=== PATIENT | female | born 1970 | race Caucasian/White ===

== ENCOUNTER 2020-03-29 12:52 | Outpatient (REF) | payer OTHER, SELFPAY | END 2020-03-29 12:53 | disposition home or self-care (01) | LOC: HO.LAB 12:52 | PROVIDERS: PCP Internal Medicine; Visit Provider Internal Medicine | DX: Z12.31 Encounter for screening mammogram for malignant neoplasm of breast (principal) | CPT/HCPCS: 87635 ==

== ENCOUNTER 2020-07-10 08:47 | Outpatient (REF) | payer SELFPAY ==
[2020-07-10 10:27] LABS: Cholesterol 210 mg/dL
== END 2020-07-10 08:48 | disposition home or self-care (01) ==
LOC: HO.LNC 08:47
PROVIDERS: Visit Provider Pathology Anatomic Pathology & Clinical Pathology
DX: Z13.89 Encounter for screening for other disorder (principal)
CPT/HCPCS: 36415; 82465

== ENCOUNTER 2020-08-04 08:33 | Outpatient (REF) | payer OTHER, SELFPAY ==
[2020-08-04 09:14] LABS: MANUAL DIFF FLAG NO
[2020-08-04 09:19] LABS: Basophils Absolute Auto 0.1 X10*3/uL (0.0-0.2); Eosinophils Absolute Auto 0.4 X10*3/uL (0.0-0.4); Hematocrit 39.5 % (37-47); Hemoglobin 12.7 g/dl (12.0-16.0); Imm Gran Abs Auto 0.01 X10*3/uL (0.00-0.03); Imm Gran Pct Auto 0.2 % (0.0-0.4); Lymphocytes Absolute Auto 1.9 X10*3/uL (1.2-4.9); Lymphocytes Percent Auto 30.4 % (20-40); Mean Corpuscular HGB Conc 32.2 g/dl (31.0-35.0); Mean Corpuscular Hemoglobin 27.9 pg (27.0-33.0); Mean Corpuscular Volume 86.8 fL (80-98); Mean Platelet Volume 9.6 fL (9.4-12.3); Monocytes Absolute Auto 0.6 X10*3/uL (0.1-1.2); Monocytes Percent Auto 9.9 % (2-11); Neutrophils Absolute Auto 3.2 X10*3/uL (2.0-8.3); Neutrophils Percent Auto 51.5 % (45-73); Platelet Count 350 X10*3/uL (160-400); Red Blood Count 4.55 X10*6/uL (4.20-5.50); Red Cell Distribution Width 12.9 % (11.0-16.0); White Blood Count 6.3 X10*3/uL (4.8-10.8)
[2020-08-04 09:50] LABS: Alanine Aminotransferase < 6 U/L (0-31); Alkaline Phosphatase 67 U/L (39-117); Anion Gap 11 (12-20); Aspartate Amino Transferase 12 U/L (5-31); Bilirubin Total 0.6 mg/dL (0.0-1.0); Blood Urea Nitrogen 14 mg/dL (9-16); Calcium 8.5 mg/dL (8.4-10.2); Carbon Dioxide 26 mmol/L (22-29); Chloride 106 mmol/L (96-108); Cholesterol 196 mg/dL; Estimated Glomerular Filt Rate > 60; Glucose Random 86 mg/dL (60-115); HDL Cholesterol 39 mg/dL; LDL Cholesterol Calculated 121 mg/dl; Potassium 4.3 mmol/L (3.3-5.1); Sodium 139 mmol/L (135-145); Total Protein 6.9 g/dL (6.5-8.0); Triglycerides 180 mg/dL
[2020-08-04 10:16] LABS: Thyroid Stimulating Hormone 4.42 uIU/mL (0.32-4.0)
[2020-08-05 08:30] LABS: HIV AB/AG Nonreactive (Nonreactive); HIV Num 1 0.06 S/CO (0.00-0.99)
[2020-08-05 19:48] LABS: C. trachomatis RNA TMA NOT DETECTED (NOT DETECTED); N. gonorrhoeae RNA TMA NOT DETECTED (NOT DETECTED)
[2020-08-07 18:16] LABS: Treponema pallidum Ab FTA ABS Nonreactive (Nonreactive)
== END 2020-08-04 08:34 | disposition home or self-care (01) ==
LOC: HO.LAB 08:33
PROVIDERS: PCP Internal Medicine; Visit Provider Internal Medicine
DX: E66.9 Obesity, unspecified (principal); E78.2 Mixed hyperlipidemia; L30.8 Other specified dermatitis; Z72.0 Tobacco use; Z11.3 Encounter for screening for infections with a predominantly sexual mode of transmission
CPT/HCPCS: 36415; 80053; 80061; 84443; 85025; 86780; 87389; 87491; 87591

== ENCOUNTER 2020-08-27 15:42 | Outpatient (REF) | payer OTHER, SELFPAY ==
--- NOTE | ~2020-08-27 | MM_ITS ---
EXAMINATION: MM SCREENING DIGITAL BREAST TOMOSYNTHESIS, BILATERAL CLINICAL INFORMATION: Screening. Asymptomatic. The lifetime risk of breast cancer based on the Tyrer-Cuzick Model is 6.5%. COMPARISON: Mammography: 08/22/2019 and studies dating back to 04/29/2009 TECHNIQUE: Digital breast tomosynthesis is performed in both the craniocaudal and mediolateral oblique views along with computer-aided detection (CAD). Synthesized 2-D images are generated from the tomosynthesis. FINDINGS: There are scattered areas of fibroglandular density (ACR BI-RADS breast composition Category b). No abnormal dominant mass is seen within either the right or left breast. Within the left breast in the inferior lateral aspect approximately 6 cm from the nipple, there is a tight grouping of increasing calcifications for which spot magnification views in craniocaudal and 90 degree mediolateral views is recommended. MM/MM tomosynthesis screening BI IMPRESSION: Developing left breast calcifications. ASSESSMENT: BI-RADS 0: Incomplete - Need Additional Imaging Evaluation . RECOMMENDATION: 1. Additional views of the left breast. 2. Targeted ultrasound if warranted after review of the additional views. 3. Radiology department staff will contact the patient for additional imaging.
== END 2020-08-27 15:43 | disposition home or self-care (01) ==
LOC: HO.MAMMO 15:42
PROVIDERS: PCP Internal Medicine; Visit Provider Internal Medicine
DX: Z12.31 Encounter for screening mammogram for malignant neoplasm of breast (principal)
CPT/HCPCS: 77063; 77067

== ENCOUNTER 2020-09-14 14:21 | Outpatient (REF) | payer OTHER, SELFPAY ==
--- NOTE | ~2020-09-14 | MM_ITS ---
EXAMINATION: MM DIAGNOSTIC DIGITAL MAMMOGRAPHY, LEFT CLINICAL INFORMATION: Recall from screening for calcifications left breast mid outer quadrant. COMPARISON: Mammography: 08/27/2020 and prior exams dating back to 07/05/2010 TECHNIQUE: Digital mammography is performed in the following views: Magnification left CC, magnification left ML. FINDINGS: There are scattered areas of fibroglandular density (ACR BI-RADS breast composition Category b). The additional views demonstrate a few punctate calcifications mid 3:00 position very tightly grouped within an area of only 3 mm. No ductal or segmental distribution. In retrospect, there are likely a few punctate calcifications in this area on remote prior imaging. Results are discussed with the patient at time of visit. Calcifications are likely benign and will be reassessed again in 6 months to include magnification views. MM/MM added views LT IMPRESSION: Probable benign punctate calcifications tightly grouped mid 3:00 position. ASSESSMENT: BI-RADS 3: Probably Benign RECOMMENDATION: Diagnostic left mammography to include magnification views in 6 months. This patient's information was entered into a reminder system with a target due date for their next mammogram.
== END 2020-09-14 14:22 | disposition home or self-care (01) ==
LOC: HO.MAMMO 14:21
PROVIDERS: PCP Internal Medicine; Visit Provider Internal Medicine
DX: R92.1 Mammographic calcification found on diagnostic imaging of breast (principal)
CPT/HCPCS: 77065

== ENCOUNTER 2021-03-30 13:57 | Outpatient (REF) | payer OTHER, SELFPAY ==
--- NOTE | ~2021-03-30 | MM_ITS ---
EXAMINATION: MM DIAGNOSTIC DIGITAL BREAST TOMOSYNTHESIS, LEFT CLINICAL INFORMATION: Short interval six-month follow-up probable benign tightly grouped punctate calcifications mid 3:00 left breast. TC score 7%. COMPARISON: Mammography: 09/14/2020, 08/27/2020 (BI-RADS 0), prior exams dating back to 07/05/2010. TECHNIQUE: Digital breast tomosynthesis is performed in both the craniocaudal and mediolateral oblique views along with computer-aided detection (CAD). Synthesized 2D images are generated from the tomosynthesis. Additional magnification left CC and magnification left ML views are obtained. FINDINGS: There are scattered areas of fibroglandular density (ACR BI-RADS breast composition Category b). There is no developing density or interval mass or architectural abnormality. Some punctate round calcifications are grouped at the mid 3:00 position. No significant change from prior diagnostic study. Calcifications will be reassessed again at next bilateral annual mammography, due in 6 months. Results are provided to the patient at time of visit by the technologist. MM/MM tomosynthesis diagnostic LT IMPRESSION: No significant changes from prior diagnostic exam. ASSESSMENT: BI-RADS 3: Probably Benign RECOMMENDATION: Diagnostic mammography at time of annual bilateral mammography, due in 6 months. This patient's information was entered into a reminder system with a target due date for their next mammogram.
== END 2021-03-30 13:58 | disposition home or self-care (01) ==
LOC: HO.MAMMO 13:57
PROVIDERS: Visit Provider Internal Medicine
DX: R92.1 Mammographic calcification found on diagnostic imaging of breast (principal)
CPT/HCPCS: 77061; 77065

== ENCOUNTER 2021-04-27 10:45 | Emergency (ER) | payer OTHER, SELFPAY ==
--- NOTE | ~2021-04-27 | CT_ITS ---
EXAMINATION: CT ABDOMEN AND PELVIS WITH CONTRAST CLINICAL INFORMATION: Epigastric pain COMPARISON: CT of the abdomen and pelvis 04/26/2016 TECHNIQUE: Multidetector volumetric images were obtained from the superior aspect of the liver through the pubic symphysis following administration 85 mL of Omnipaque 350 intravenous contrast. Sagittal and coronal reformatted images were obtained on the technologist's workstation. Oral contrast: No This CT examination was performed using dose optimization techniques as appropriate, variously including the following: *Automated exposure control *Adjustment of mA and/or kV according to patient size (this includes techniques or standardized protocols for targeted exams where dose is matched to indication/reason for exam; i.e. extremities or head) *Use of iterative reconstruction technique DLP: 819 mGy-cm FINDINGS: LUNG BASES: The visualized lung bases are unremarkable. LIVER, GALLBLADDER, AND BILIARY TREE: The liver is normal in size, shape, and attenuation. No focal hepatic lesion or biliary ductal dilatation is present. The gallbladder is surgically absent. PANCREAS: There is stranding of the peripancreatic mesentery. No peripancreatic fluid collection. The pancreatic duct is not dilated. There is uniform enhancement of the pancreatic parenchyma. SPLEEN: Unremarkable. ADRENAL GLANDS: Unremarkable. KIDNEYS AND URETERS: Again demonstrated are dilated bilateral extrarenal pelvises ulna not significantly changed since the prior study. There is symmetric enhancement of both kidneys. BLADDER: Unremarkable. GASTROINTESTINAL TRACT: The stomach and small bowel are not dilated. No evidence of bowel obstruction. Scattered diverticula of the descending and sigmoid colon without evidence of diverticulitis. Normal appendix. ABDOMINAL WALL: No significant hernia is appreciated. LYMPH NODES: There are enlarged periportal and peripancreatic lymph nodes, measuring up to 1.4 cm in short axis. VASCULAR: Normal caliber of the abdominal aorta. Scattered atherosclerotic calcifications. PELVIC VISCERA: There are prominent vessels around the uterus. There is a low-density lesion in the left aspect of the uterus measuring approximately 0.6 cm, that may represent a small cyst. The bilateral ovaries are normal.. OSSEOUS STRUCTURES: No acute or suspicious osseous abnormality. Grade 1 anterolisthesis of L3 on L4, unchanged prior study. CT/CT abdomen pelvis w con IMPRESSION: Peripancreatic inflammatory stranding, suggestive of pancreatitis. Recommend clinical and laboratory correlation. No peripancreatic fluid collection. No evidence for pancreatic necrosis. Findings are similar to prior studies. Mildly enlarged periportal and peripancreatic lymph nodes, likely reactive. Other chronic findings as above.
[2021-04-27 11:23] VITALS: BP 140/95; PULSE 89; RESP 18; TEMP 37.4; O2SAT 96; BMI 59.2
[2021-04-27 12:36] LABS: MANUAL DIFF FLAG NO
[2021-04-27 12:38] LABS: Basophils Percent Auto 0.4 % (0-2); Eosinophils Absolute Auto 0.1 X10*3/uL (0.0-0.4); Eosinophils Percent Auto 1.1 % (0-4); Hematocrit 44.5 % (37.0-47.0); Hemoglobin 14.4 g/dl (12.0-16.0); Imm Gran Abs Auto 0.04 X10*3/uL (0.00-0.03); Imm Gran Pct Auto 0.5 % (0.0-0.4); Lymphocytes Absolute Auto 1.3 X10*3/uL (1.2-4.9); Lymphocytes Percent Auto 17.4 % (20-40); Mean Corpuscular HGB Conc 32.4 g/dl (31.0-35.0); Mean Corpuscular Hemoglobin 27.9 pg (27.0-33.0); Mean Corpuscular Volume 86.2 fL (80.0-98.0); Mean Platelet Volume 9.2 fL (9.4-12.3); Monocytes Absolute Auto 0.8 X10*3/uL (0.1-1.2); Monocytes Percent Auto 11.1 % (2-11); Neutrophils Absolute Auto 5.2 x10*3/uL (2.0-8.3); Neutrophils Percent Auto 69.5 % (45-73); Platelet Count 345 X10*3/uL (160-400); Red Blood Count 5.16 X10*6/uL (4.20-5.50); Red Cell Distribution Width 14.1 % (11.0-16.0); White Blood Count 7.4 X10*3/uL (4.8-10.8)
[2021-04-27 12:56] LABS: Alanine Aminotransferase 10 U/L (0-31); Albumin Level 4.4 g/dL (3.5-5.0); Alkaline Phosphatase 96 U/L (39-117); Anion Gap 12 (12-20); Aspartate Amino Transferase 14 U/L (5-31); Bilirubin Direct 0.2 mg/dL (0.0-0.5); Bilirubin Total 0.6 mg/dL (0.0-1.0); Blood Urea Nitrogen 13 mg/dL (9-16); Calcium 9.8 mg/dL (8.4-10.2); Carbon Dioxide 28 mmol/L (22-29); Chloride 102 mmol/L (96-108); Creatinine Clr Calc Pharmacy 64.4; Estimated Glomerular Filt Rate > 60; Glucose Random 97 mg/dL (60-115); Lipase 20 U/L (8-78); Potassium 4.3 mmol/L (3.3-5.1); Sodium 138 mmol/L (135-145)
[2021-04-27 12:56] LABS: Appearance Urine HAZY; Color Urine YELLOW; Glucose Urine UA NEG (NEG); Leukocyte Esterase Urine NEG (NEG); Nitrite Urine NEG (NEG); Specific Gravity - Urine 1.015 (1.005-1.025); Urine Blood NEG (NEG); Urine Ketones NEG (NEG); Urine Protein NEG (NEG-TRACE)
[2021-04-27 16:51] VITALS: BP 140/91; PULSE 90; RESP 18; O2SAT 96
--- NOTE | 2021-04-27 16:51 | ED_ITS ---
HPI - Abdominal Pain General Chief Complaint: Abdominal Pain Stated Complaint: fever, hbp, rapid heart beat, abd pain Time Seen by Provider: 04/27/21 16:49 Source: patient Mode of arrival: ambulatory Limitations: no limitations History of Present Illness MD elicited complaint: abdominal pain Pertinent past history: none Onset (ago): day(s) (1) Pain Consistency: constant Location: epigastric Severity: severe Quality: stabbing Radiation: none Migration to: no migration Exacerbating factors: eating Relieving factors: nothing Context: other (started after eating ribs) Associated symptoms: nausea, fever and chills Treatments prior to arrival: NSAIDs Related Data Previous Rx's Medication Instructions Recorded morphine 15 mg immediate release 15 mg PO Q6H PRN 3 Days #15 tab 04/27/21 tablet omeprazole 20 mg capsule,delayed 20 mg PO DAILY 14 Days #14 cap 04/27/21 release ondansetron 4 mg disintegrating 4 mg PO Q8H PRN #20 tab 04/27/21 tablet Allergies Allergy/AdvReac Type Severity Reaction Status Date / Time No Known Allergies Allergy Verified 04/27/21 11:23 [No Known Allergies*] Review of Systems Review of Systems Constitutional : No Weight loss, pos Fever, pos Chills ENT/Mouth : No sore throat, No Rhinorrhea Eyes: No Swelling, No Redness Cardiovascular : No Chest Pain, No SOB, NoEdema Respiratory : No Cough, No Sputum, No Wheezing Gastrointestinal : Positive Nausea, no Vomiting, no Diarrhea, positive abdominal Pain, No Hematochezia, No Melena Genitourinary : No Dysuria, No Urinary Frequency, No Hematuria, No Urgency Musculoskeletal : No joint pain, No Myalgias, No Joint Swelling Skin : No Skin Lesions, No rash Neuro : No Weakness, No Numbness, No Dizziness, No Headache Psych : No Anxiety/Panic, No Depression Heme/Lymph: No Bruising, No Lymphadenopathy Endocrine : No Polyuria, No Polydipsia All other systems reviewed and are negative. Physical Exam Vital Signs: Vital Signs: Last Vital Signs Temp 98.3 F 04/27/21 17:53 Pulse 80 04/27/21 17:53 Resp 16 04/27/21 17:53 BP 153/97 H 04/27/21 17:53 Pulse Ox 95 04/27/21 17:53 Body Mass Index 59.2 Appearance: Alert. Oriented X3. Anxious in pain mild acute distress Eyes: Pupils equal, round and reactive to light. ENT: Pharynx mild dry MM Neck: Normal inspection. Neck supple. CVS: Normal heart rate and rhythm. Pulses normal. Respiratory: No respiratory distress. Abdomen: Soft and moderate epigastric ttp no rebound no distention Skin: Skin warm and dry. Normal skin color. Normal skin turgor. Extremities: No lower extremity edema. Neuro: Oriented X 3. No motor deficit. No sensory deficit. Course Course Course Narrative: patient can no longer wait in ED instructed her to return at any time patient changed her mind decided to return at this time CT scan of abdomen pelvis ordered, IV morphine pateint feels much better I did offer admission but she states she is not vomiting and wants to trial at home - stable for DC MDM - Abdominal Pain MDM Narrative Medical decision making narrative: 50 yo female with hx of gallbladder removal here with 1 month of worsening upper abdominal pain that worsened after eating ribs last night at this time labs reviewed and are normal she has upper abdominal pain suspect ulcer vs gastroparesis vs stone though LFTs normal - she has to leave due to long wait time and family emergency. Lab Data Result diagrams: 04/27/21 12:32 04/27/21 12:32 Labs: Lab Results 04/27/21 04/27/21 04/27/21 Range/Units 12:31 12:32 12:32 WBC 7.4 (4.8-10.8) X10*3/uL RBC 5.16 (4.20-5.50) X10*6/uL Hgb 14.4 (12.0-16.0) g/dl Hct 44.5 (37.0-47.0) % MCV 86.2 (80.0-98.0) fL MCH 27.9 (27.0-33.0) pg MCHC 32.4 (31.0-35.0) g/dl RDW 14.1 (11.0-16.0) % Plt Count 345 (160-400) X10*3/uL MPV 9.2 L (9.4-12.3) fL Immature Gran % (Auto) 0.5 H (0.0-0.4) % Neut % (Auto) 69.5 (45-73) % Lymph % (Auto) 17.4 L (20-40) % [place] % (Auto) 11.1 H (2-11) % Eos % (Auto) 1.1 (0-4) % Baso % (Auto) 0.4 (0-2) % Lymph # (Auto) 1.3 (1.2-4.9) X10*3/uL [place] # (Auto) 0.8 (0.1-1.2) X10*3/uL Eos # (Auto) 0.1 (0.0-0.4) X10*3/uL Baso # (Auto) 0.0 (0.0-0.2) X10*3/uL Abs Immat Gran (auto) 0.04 H (0.00-0.03) X10*3/uL Absolute Neuts (auto) 5.2 (2.0-8.3) x10*3/uL Absolute Nucleated RBC 0.000 (0.0-0.012) X10*3/uL Nucleated RBC % (auto) 0.0 (0.0-0.2) /100WBC Sodium 138 (135-145) mmol/L Potassium 4.3 (3.3-5.1) mmol/L Chloride 102 (96-108) mmol/L Carbon Dioxide 28 (22-29) mmol/L Anion Gap 12 (12-20) BUN 13 (9-16) mg/dL Creatinine 0.74 (0.5-1.4) mg/dL Estim Creat Clear Calc 64.4 Estimated GFR > 60 Random Glucose 97 (60-115) mg/dL Calcium 9.8 D (8.4-10.2) mg/dL Total Bilirubin 0.6 (0.0-1.0) mg/dL Direct Bilirubin 0.2 (0.0-0.5) mg/dL AST 14 (5-31) U/L ALT 10 (0-31) U/L Alkaline Phosphatase 96 D (39-117) U/L Total Protein 8.0 (6.5-8.0) g/dL Albumin 4.4 (3.5-5.0) g/dL Lipase 20 (8-78) U/L Urine Color YELLOW Urine Appearance HAZY Urine pH 6.0 (5.0-8.0) Ur Specific Campbell 1.015 (1.005-1.025) Urine Protein NEG (NEG-TRACE) MG/DL Urine Glucose (UA) NEG (NEG) MG/DL Urine Ketones NEG (NEG) MG/DL Urine Blood NEG (NEG) Urine Nitrite NEG (NEG) Ur Leukocyte Esterase NEG (NEG) Discharge Plan Discharge Clinical Impression: Abdominal pain Qualifiers: Abdominal location: epigastric Qualified Code(s): R10.13 - Epigastric pain Pancreatitis Qualifiers: Chronicity: acute Pancreatitis type: unspecified pancreatitis type Acute pancreatitis complication: unspecified Qualified Code(s): K85.90 - Acute pancreatitis without necrosis or infection, unspecified Patient Disposition: Home, Self-Care Instructions: Pancreatitis (ED), Clear Liquid Diet (ED), Abdominal Pain (ED) Additional Instructions: return to ED for any worsening symptoms or concerns Prescriptions: New morphine 15 mg tablet 15 mg PO Q6H PRN (Reason: pain) 3 Days Qty: 15 RF: 0 ondansetron 4 mg tablet,disintegrating 4 mg PO Q8H PRN (Reason: nausea and vomiting) Qty: 20 RF: 0 omeprazole 20 mg capsule,delayed release(DR/EC) 20 mg PO DAILY 14 Days Qty: 14 RF: 0 Referrals: Rosie Urbina MD [Primary Care Provider] - 3 days Stand Alone Forms: Work/School Release [facility] Past Medical History Attestation statement: The following information was validated with the patient. Medical History Breast lump Surgical History History of cholecystectomy Social History Social History (Updated 04/27/21 @ 16:57 by Mary Pizarro DO) Patient Tobacco Use Status: Never used Tobacco Advance Directives: No Advance Directives Information Provided: No
[2021-04-27 17:53] VITALS: BP 153/97; PULSE 80; RESP 16; TEMP 36.8; O2SAT 95
[2021-04-27] MEDS: Lidocaine HCl Viscous 2 % 15 ML SOLUTION MUCOUS MEM (18:53)
[2021-04-27] MEDS: Morphine Sulfate 4 MG/ML CARTRIDGE IVPUSH (18:53)
[2021-04-27] MEDS: Famotidine/PF 20 MG/2 ML VIAL IVPUSH (18:53)
[2021-04-27] MEDS: 0.9 % Sodium Chloride 1,000 ML 999 ML IVCONT (18:55)
[2021-04-27] MEDS: ondansetron HCL 4 MG/2 ML VIAL IVPUSH (18:55)
[2021-04-27] MEDS: iohexoL 350 MG/ML 100 ML INFUS..BTL IV (19:41)
[2021-04-27 20:00] VITALS: BP 159/81; PULSE 82; RESP 16; TEMP 36.1; O2SAT 100
--- NOTE | 2021-04-27 20:00 | PC.NURSE ---
REPORT TAKEN FROM ELSA RN, FIRST CONTACT WITH PT. RESTING ON STRETCHER A&Ox4 SKIN PWD, REPSIRATIONS EVEN UNLABORED. REPORTS POSITIVE PAIN RELIEF FROM PREVIOUSLY ADMINISTERED MEDS. DENIES PAIN, DENIES N/V. ASSISTED UP TO BATHROOM. AMBULATES WITH STEADY GAIT. AWAITING RESULTS AND MD REEVAL. AWARE OF PLAN OF CARE.
--- NOTE | 2021-04-27 20:32 | PC.NURSE ---
MD HERNADEZ AT BEDSIDE FOR REEVAL.
== END 2021-04-27 20:48 | disposition home or self-care (01) ==
PROVIDERS: Emergency Provider Emergency Medicine; PCP Internal Medicine
DX: K85.90 Acute pancreatitis without necrosis or infection, unspecified (principal); R50.9 Fever, unspecified; R10.13 Epigastric pain; R00.0 Tachycardia, unspecified; Z79.899 Other long term (current) drug therapy
CPT/HCPCS: 36415; 74177; 80048; 80076; 81003; 83690; 85025; 96361; 96374; 96375; 99284; J2270; J2405; Q9967

== ENCOUNTER 2021-08-05 09:39 | Outpatient (REF) | payer OTHER, SELFPAY ==
[2021-08-05 09:57] LABS: MANUAL DIFF FLAG NO
[2021-08-05 10:23] LABS: Basophils Percent Auto 0.5 % (0-2); Eosinophils Absolute Auto 0.4 X10*3/uL (0.0-0.4); Eosinophils Percent Auto 5.4 % (0-4); Hematocrit 40.5 % (37.0-47.0); Hemoglobin 12.9 g/dl (12.0-16.0); Imm Gran Abs Auto 0.02 X10*3/uL (0.00-0.03); Imm Gran Pct Auto 0.3 % (0.0-0.4); Lymphocytes Absolute Auto 2.3 X10*3/uL (1.2-4.9); Mean Corpuscular HGB Conc 31.9 g/dl (31.0-35.0); Mean Corpuscular Hemoglobin 27.3 pg (27.0-33.0); Mean Corpuscular Volume 85.6 fL (80.0-98.0); Mean Platelet Volume 9.8 fL (9.4-12.3); Monocytes Absolute Auto 0.8 X10*3/uL (0.1-1.2); Monocytes Percent Auto 10.4 % (2-11); Neutrophils Absolute Auto 4.2 x10*3/uL (2.0-8.3); Neutrophils Percent Auto 53.4 % (45-73); Platelet Count 427 X10*3/uL (160-400); Red Blood Count 4.73 X10*6/uL (4.20-5.50); Red Cell Distribution Width 14.2 % (11.0-16.0); White Blood Count 7.8 X10*3/uL (4.8-10.8)
[2021-08-05 11:08] LABS: Alanine Aminotransferase 7 U/L (0-31); Albumin Level 4.2 g/dL (3.5-5.0); Alkaline Phosphatase 92 U/L (39-117); Anion Gap 12 (12-20); Aspartate Amino Transferase 20 U/L (5-31); Bilirubin Total 0.8 mg/dL (0.0-1.0); Blood Urea Nitrogen 19 mg/dL (9-16); Calcium 9.6 mg/dL (8.4-10.2); Carbon Dioxide 27 mmol/L (22-29); Chloride 106 mmol/L (96-108); Cholesterol 218 mg/dL; Estimated Glomerular Filt Rate > 60; Glucose Random 93 mg/dL (60-115); HDL Cholesterol 44 mg/dL; LDL Cholesterol Calculated 147 mg/dl; Potassium 4.7 mmol/L (3.3-5.1); Sodium 140 mmol/L (135-145); Total Protein 7.6 g/dL (6.5-8.0); Triglycerides 137 mg/dL
[2021-08-05 11:16] LABS: HIV AB/AG Nonreactive (Nonreactive); HIV Num 1 0.07 S/CO (0.00-0.99)
[2021-08-05 11:19] LABS: Thyroid Stimulating Hormone 3.47 uIU/mL (0.32-4.0)
[2021-08-05 16:06] LABS: CT PCR NOT DETECTED (Not Detect.); NG PCR NOT DETECTED (Not Detect.)
[2021-08-09 19:11] LABS: Treponema pallidum Ab FTA ABS Nonreactive (Nonreactive)
== END 2021-08-05 09:40 | disposition home or self-care (01) ==
LOC: HO.LAB 09:39
PROVIDERS: PCP Internal Medicine; Visit Provider Internal Medicine
DX: Z00.00 Encounter for general adult medical examination without abnormal findings (principal); Z13.31 Encounter for screening for depression; R21 Rash and other nonspecific skin eruption; Z72.0 Tobacco use
CPT/HCPCS: 80053; 80061; 84443; 85025; 86780; 87389; 87491; 87591

== ENCOUNTER 2021-09-20 07:20 | Outpatient (REF) | payer OTHER, SELFPAY ==
--- NOTE | ~2021-09-20 | MR_ITS ---
EXAMINATION: BRAIN MRI WITHOUT CONTRAST CLINICAL INFORMATION: Monoplegia. Headache. COMPARISON: No relevant prior imaging. TECHNIQUE: Multiplanar MR imaging of the brain was performed without contrast. FINDINGS: There is a tiny focus of restricted diffusion involving the left precentral sulcus near the hand motor association area best depicted on axial image 27 of 31 series 4. In addition to this finding there are a few scattered nonspecific foci of T2 FLAIR signal hyperintensity within the periventricular white matter. No pathological magnetic susceptibility artifact. Intracranial vascular flow voids are grossly maintained. There is no intracranial mass effect or midline shift. No abnormal extra-axial collection. Lateral and third ventricles are normal. No hydrocephalus. Midline structures including the cervicomedullary junction are normal. No acute bone marrow signal changes. There is no mastoid or middle ear effusion. Trivial mucosal thickening within ethmoid air cells. There is a small retention cysts within the alveolar recess of left maxillary sinus. Globes and orbits are symmetric. MR/MR head/brain wo con IMPRESSION: There is a tiny acute cortical infarct involving the left precentral sulcus near the hand motor association area. This finding is superimposed upon a few scattered chronic small vessel ischemic changes within the supratentorial white matter.
== END 2021-09-20 07:21 | disposition home or self-care (01) ==
LOC: HO.MRI 07:20
PROVIDERS: Visit Provider Internal Medicine
DX: G83.20 Monoplegia of upper limb affecting unspecified side (principal); R51.9 Headache, unspecified
CPT/HCPCS: 70551

== ENCOUNTER 2021-09-24 06:52 | Outpatient (REF) | payer OTHER, SELFPAY ==
[2021-09-24 08:11] LABS: Blood Urea Nitrogen 18 mg/dL (9-16); Estimated Glomerular Filt Rate > 60
== END 2021-09-24 06:53 | disposition home or self-care (01) ==
LOC: HO.LAB 06:52
PROVIDERS: PCP Internal Medicine; Visit Provider Psychiatry & Neurology Neurology
DX: Z01.812 Encounter for preprocedural laboratory examination (principal); G45.9 Transient cerebral ischemic attack, unspecified
CPT/HCPCS: 36415; 82565; 84520

== ENCOUNTER 2021-09-29 14:50 | Outpatient (REF) | payer OTHER, SELFPAY ==
--- NOTE | ~2021-09-29 | MM_ITS ---
EXAMINATION: MM DIAGNOSTIC DIGITAL BREAST TOMOSYNTHESIS, BILATERAL CLINICAL INFORMATION: Due for yearly. Also follow-up probable benign tightly grouped punctate calcifications mid 3:00 left breast. The lifetime risk of breast cancer based on the Tyrer-Cuzick Model is 6%. COMPARISON: Mammography: 03/30/2021, 09/14/2020, 08/27/2020 (BI-RADS 0), 08/22/2019, 07/26/2018 TECHNIQUE: Digital breast tomosynthesis is performed in both the craniocaudal and mediolateral oblique views along with computer-aided detection (CAD). Synthesized 2D images are generated from the tomosynthesis. Additional magnification left CC and magnification left ML views are obtained. Exam performed during IT downtime. FINDINGS: There are scattered areas of fibroglandular density (ACR BI-RADS breast composition Category b). Parenchymal pattern is similar to prior studies. No developing density or interval mass or architectural abnormality. The axilla and skin contours are unremarkable. There are no abnormal calcifications right breast. Left breast calcifications for follow-up are stable. There are a few punctate tightly grouped calcifications mid 3:00 position similar to prior diagnostic exams. No increasing calcifications or suspicious changes. These may be reassessed again at next bilateral annual mammography in one year to conclude long-term surveillance. MM/MM tomosynthesis diagnostic BI IMPRESSION: -No mammographic evidence of malignancy. -Benign-appearing tightly grouped calcifications mid 3:00 left breast stable. ASSESSMENT: BI-RADS 3: Probably Benign RECOMMENDATION: Diagnostic mammography at time of next annual exam, due in 12 months. This patient's information was entered into a reminder system with a target due date for their next mammogram.
== END 2021-09-29 14:51 | disposition home or self-care (01) ==
LOC: HO.MAMMO 14:50
PROVIDERS: Visit Provider Internal Medicine
DX: R92.1 Mammographic calcification found on diagnostic imaging of breast (principal)
CPT/HCPCS: 77062; 77066

== ENCOUNTER 2021-09-30 07:43 | Outpatient (REF) | payer OTHER, SELFPAY ==
--- NOTE | ~2021-09-30 | CT_ITS ---
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 TIA. COMPARISON: None TECHNIQUE: Volumetric CT angiography of the neck and head was done from the lung apices to the vertex of the head utilizing the bolus intravenous administration of 70 mL of Omnipaque 350 contrast material via power injector. Multiplanar reformatted reconstructions and 3-D renderings were performed on the CT console. The degree of stenosis determined by NASCET criteria. This CT examination was performed using dose optimization techniques as appropriate, variously including the following: *Automated exposure control. *Adjustment of mA and/or kV according to patient size (this includes techniques or standardized protocols for targeted exams where dose is matched to indication/reason for exam; i.e. extremities or head). *Use of iterative reconstruction technique. DLP: 2334 mGy-cm FINDINGS: The apex of the aortic arch is visualized with normal caliber. There is a bovine origin of the left common carotid artery from the base of the innominate artery. The innominate artery is tortuous and is not well visualized due to artifacts. The right subclavian artery is partially obscured on its proximal aspect. There is mild narrowing of the proximal left subclavian artery without significant focal stenosis. More distally, the visualized left subclavian artery is normal in caliber. The left vertebral artery originates from the aortic arch, which is a normal variant. The right vertebral artery origin is normal in caliber and patent. Both proximal vertebral arteries are patent and appear relatively codominant. The vertebral arteries throughout the cervical spine are patent without significant focal stenosis or segmental occlusion. The common carotid arteries are patent and normal in caliber. The proximal right common carotid artery is partially obscured by artifact. There is mild partially calcified plaque at the left carotid bulb with less than 50% diameter reduction stenosis on the basis of NASCET criteria. Tiny focus of calcified plaque also seen in the mid left cervical ICA. There is a partially calcified plaque at the right carotid bulb and proximal ICA with less than 50% diameter reduction stenosis on the basis of NASCET criteria. Tortuosity of both ICAs as noted with otherwise normal caliber throughout the remainder of the neck. External carotid arteries are patent. The intracranial ICAs are patent and normal in caliber bilaterally. Minimal mural calcification of the cavernous right ICA. The A1 and A2 segments are patent and normal in caliber. The anterior communicating artery is diminutive but normal. The M1 segments of the MCAs are patent and normal in caliber with normal caliber M2 branches. The right P-comm appears within normal limits. Left P-comm also appears within normal limits. The intradural vertebral arteries are patent and normal in caliber bilaterally. The basilar artery is normal in caliber and patent. The superior cerebellar arteries and posterior cerebral arteries are patent and normal in caliber. Precontrast and delayed postcontrast CT of the brain demonstrates a zone of gyriform enhancement corresponding to the left perirolandic region at the same location as previously identified restricted diffusion on the prior MRI, consistent with a subacute infarct. There is minimal adjacent edema at the burgos-white junction. The remainder of the brain is normal in morphology and attenuation. No extra-axial fluid collections, space-occupying process or mass effect. Burgos-white matter interface is preserved. Ventricular system and subarachnoid spaces are within normal limits. Bony structures appear grossly intact. Visualized airspaces are unopacified. Small retention cyst left maxillary sinus noted. Visualized extracranial soft tissue structures appear grossly unremarkable. Limited visualization of the lung parenchyma demonstrates no definite acute process. Small normal-sized lymph nodes noted in the right axilla and left subpectoral region. Visualized soft tissue structures of the neck appear symmetric and unremarkable. Note that the right internal carotid artery deviates into a right retropharyngeal position. Skeletal structures appear intact. There is nasal septal deviation to the left. There is lordotic reversal centered at C4-C5. Disc degenerative change and spondylosis noted between C3-C4 and C5-C6, inclusive. CT/CT angio head neck IMPRESSION: 1. Mild partially calcified atheromatous plaque at both carotid bulbs noted, right more than left, with less than 50% diameter reduction stenosis on the basis of NASCET criteria. 2. Codominant vertebral arteries bilaterally which appear normal in caliber. 3. Possible mild stenosis of the proximal left subclavian artery. Suboptimal visualization of the brachiocephalic vessels. 4. No intracranial arterial stenosis or occlusion. 5. Small focus of gyriform enhancement with minimal adjacent edema in the left perirolandic region consistent with a subacute infarct.
[2021-09-30] MEDS: iohexoL 350 MG/ML 100 ML INFUS..BTL IV (08:42)
== END 2021-09-30 07:44 | disposition home or self-care (01) ==
LOC: HO.CT 07:43
PROVIDERS: PCP Internal Medicine; Visit Provider Psychiatry & Neurology Neurology
DX: G45.9 Transient cerebral ischemic attack, unspecified (principal)
CPT/HCPCS: 70496; 70498; Q9967

== ENCOUNTER 2021-11-05 08:27 | Outpatient (REF) | payer OTHER, SELFPAY ==
[2021-11-05 09:37] LABS: Alanine Aminotransferase 10 U/L (0-31); Alkaline Phosphatase 97 U/L (39-117); Anion Gap 11 (12-20); Aspartate Amino Transferase 19 U/L (5-31); Bilirubin Total 0.8 mg/dL (0.0-1.0); Blood Urea Nitrogen 17 mg/dL (9-16); Calcium 9.8 mg/dL (8.4-10.2); Carbon Dioxide 26 mmol/L (22-29); Chloride 105 mmol/L (96-108); Cholesterol 128 mg/dL; Estimated Glomerular Filt Rate > 60; Glucose Random 97 mg/dL (60-115); HDL Cholesterol 36 mg/dL; LDL Cholesterol Calculated 74 mg/dl; Potassium 4.2 mmol/L (3.3-5.1); Sodium 138 mmol/L (135-145); Total Protein 7.3 g/dL (6.5-8.0); Triglycerides 93 mg/dL
== END 2021-11-05 08:28 | disposition home or self-care (01) ==
LOC: HO.LAB 08:27
PROVIDERS: PCP Internal Medicine; Visit Provider Internal Medicine
DX: E78.00 Pure hypercholesterolemia, unspecified (principal); I10 Essential (primary) hypertension; L65.8 Other specified nonscarring hair loss
CPT/HCPCS: 36415; 80053; 80061

== ENCOUNTER → 2021-11-19 13:46 | Outpatient (REF) | payer OTHER, SELFPAY ==
--- NOTE | 2021-11-19 13:50 | CA_ITS ---
Transthoracic Echocardiogram Patient (Last, First, Middle): Katherine Kenney, Gender: Female Date of : 1970 Age: 51 Procedure Date: 11/19/2021 Procedure Type: Transthoracic Echocardiogram Location: OP Height: 149.86 cm Weight: 88.45 kg BSA: 1.82 m2 Heart Rate: bpm BP: 147 / 90 mmHg Parliamentary Librarian: TO/SB Referring MD: Kt De Souza MD Symptoms: I63.9 STROKE Study Quality: Fair/Contrast Conclusions: - Normal left ventricular size and systolic function. There is mildly increased left ventricular wall thickness. The visually estimated ejection fraction is between 60-65%. - E/E prime ratio is between 8 and 15 consistent with indeterminate filling pressures. - Normal right ventricular cavity size and systolic function. - Both atria are normal in size. There is no evidence of interatrial shunt by color Doppler. - There is mild dilatation of the ascending aorta measuring 3.40 cm. Findings Procedure Information Contrast agent, definity, is being given per protocol without apparent complications. Left Ventricle Normal left ventricular size and systolic function. There is mildly increased left ventricular wall thickness. The visually estimated ejection fraction is between 60-65%. Abnormal diastolic function is noted. Spectral Doppler is indicative of an impaired relaxation filling pattern. E/E prime ratio is between 8 and 15 consistent with indeterminate filling pressures. Right Ventricle Normal right ventricular cavity size and systolic function. Atria Both atria are normal in size. There is no evidence of interatrial shunt by color Doppler. Aortic Valve There is a normal trileaflet aortic valve. There is mild calcification of the aortic valve. There is no aortic valve stenosis. There is no aortic valve regurgitation. Mitral Valve The mitral valve appears normal. There is no mitral valve regurgitation. There is no mitral valve stenosis. Pulmonic Valve The pulmonic valve is likely normal. Tricuspid Valve Normal tricuspid valve structure and function. There is trace tricuspid valve regurgitation. Normal right atrial pressure. There is no evidence of pulmonary hypertension. Great Vessels There is mild dilatation of the ascending aorta measuring 3.40 cm. The visualized portions of the pulmonary artery and branches are normal. Venous The inferior vena cava is normal in size and collapses greater than 50% with inspiration. Pericardium/Pleural There is no evidence of pericardial effusion. Prior Study Comparison No prior study available for comparison. Measurements 2D Linear Measurements IVSd: 1.11 0.6-0.9/0.6-1.0 cm LVIDd: 4.16 3.9-5.3/4.2-5.9 cm LVIDd Index: 2.29 2.4-3.2/2.2-3.1 cm/m2 LVIDs: 2.67 2.0-3.6 cm LVPWd: 0.92 0.7-1.1 cm LA Diam: 3.80 2.7-3.8/3.0-4.0 cm LAIDs Index: 2.09 1.5-2.3 cm/m2 LV Mass: 171.91 67-162/88-224 g LV Mass Index: 94.46 43-95/49-115 g/m2 LVOT Diam: 2.00 3.0+(-)1.3 cm 2D Systolic Function EF 4C: 62.50 >55% EF 2C: 57.90 >55% EF BiP: 60.40 >55% Mitral Valve MV Pk E: 0.64 MV PK A: 0.68 MV Decel Time: 273.00 E/A: 0.90 E'Lateral: 9.25 E'Medial: 5.66 E/E' Med: 11.40 E/E' Lat: 7.00 PHT: 80.00 MVA PHT: 2.75 Decel Clare: 2.35 Aortic Valve AoV Pk Fer: 1.15 AoV Mn Fer: 0.78 AoV VTI: 0.27 AoV Pk Grad: 5.00 Aov Mn Grad: 3.00 AKANKSHA Cont.VTI: 2.07 LVOT LVOT Pk Fer: 0.71 LVOT Mn Fer: 0.49 LVOT VTI: 0.18 LVOT Pk Grad: 2.00 LVOT Mn Grad: 1.00 LVOT Diam: 2.00 LVOT Area: 3.14 Diastolic Function MV Pk E: 0.64 MV Pk A: 0.68 E/A: 0.90 E'Medial: 5.66 E/E' Med: 11.40 E' Laterial: 9.25 E/E' Lat: 7.00 Right Ventricle TAPSE (mm): 19.10 TVS' Fer: 8.59 Tricuspid Valve TR Pk Fer: 1.98 TR Pk Grad: 16.00 RA Press: 3.00 RVSP: 19.00 Great Vessels Aorta Sinus of Valsalva: 3.21 2.0-3.[address] Ridge: 2.52 1.7-3.4 cm Ao Asc: 3.40 2.1-3.4 cm Ao Arch: 2.50 Updated in Other Vendor System with Status of Final Shelton Cloud MD electronically signed on 11/21/2021 10:19:17 PM with status of Final
== END ==
LOC: HO.CARD 13:46
PROVIDERS: Visit Provider Psychiatry & Neurology Neurology
DX: I63.9 Cerebral infarction, unspecified (principal)
CPT/HCPCS: 93306; Q9957

== ENCOUNTER 2022-03-15 07:50 | Outpatient (REF) | payer OTHER, SELFPAY ==
[2022-03-15 08:44] LABS: Cholesterol 206 mg/dL; HDL Cholesterol 41 mg/dL; LDL Cholesterol Calculated 130 mg/dl; Triglycerides 179 mg/dL
== END 2022-03-15 07:51 | disposition home or self-care (01) ==
LOC: HO.LAB 07:50
PROVIDERS: PCP Internal Medicine; Visit Provider Psychiatry & Neurology Neurology
DX: I63.9 Cerebral infarction, unspecified (principal)
CPT/HCPCS: 36415; 80061

== ENCOUNTER 2022-06-08 16:54 | Outpatient (REF) | payer OTHER, SELFPAY ==
--- NOTE | ~2022-06-08 | XR_ITS ---
EXAMINATION: XR HIP, LEFT CLINICAL INFORMATION: Pain in unspecified hip COMPARISON: 04/27/2021 TECHNIQUE: Review of the pelvis with AP and frog-leg lateral views of the left hip FINDINGS: There is sclerosis and osteophytosis on both sides of the pubic symphysis. Sacroiliac joints are patent. Hip joint spaces are maintained. No fracture. Degenerative disc disease of the lower lumbar spine. XR/XR hip LT w PEL1V IMPRESSION: No acute osseous abnormality. Degenerative changes as described above.
== END 2022-06-08 16:55 | disposition home or self-care (01) ==
LOC: HO.HOSX 16:54
PROVIDERS: Visit Provider Physician Assistant
DX: M25.552 Pain in left hip (principal); M53.3 Sacrococcygeal disorders, not elsewhere classified; G89.29 Other chronic pain
CPT/HCPCS: 73502

== ENCOUNTER 2022-07-07 17:00 | Outpatient (RCR) | payer OTHER, SELFPAY ==
--- NOTE | 2022-06-22 10:42 | MHC.PT.EP ---
[facility] [place] Office [place] Office [place] Office [address] Jody Parker [address] [phone] F: [phone] F: [phone] F: [phone] F: [phone] Physical Therapy Plan of Care Date of Evaluation: Date of Surgery: Diagnosis: L hip and low back pain/ sacrococcygeal Assessment: Patient is a 52 y.o. who is referred to PT by OBDULIA Grider with Dx of sacrococcygeal disorders, chronic L SIJ pain. PT diagnosis is L greater trochanteric bursitis and lumbar degenrative disc disease contributing to sxs due to compensations and muscle imbalanaces. Patient impairments include pain, weakness, limited ROM. Patient current functional limitations are walking, standing, bending, stair use, cannot lie on L side. Patient will benefit from skilled PT to address aforementioned impairments and functional limitations to meet established goals. Frequency and Duration: The patient will be seen 1-2x/week for 4 weeks Short Term Goals: 2 weeks Patient demonstrates consistency and independence with HEP to self manage symptoms. Patient is able to verbalize and impliment change to work desk for ergonomic set up to reduce pain and LE strain. Halfway Goals: 4 weeks Patient presents with increased L glute med strength 4+/5 to be able to ambulate without compensation. Patient presents with increased lumbar spine flexion AROM 90 degrees without pain to be able to bend/squat. Treatment Plan: Modalities to reduce pain, spasms and effusion. Manual therapy to restore motion and function. Therapeutic exercise to improve strength and flexibility. Neuromuscular re-education for posture and balance. Therapeutic activities to return to functional activities of daily living. Electronically signed by: Karina Burnett, PT, DPT Please sign and return to therapist. Thank you for your referral.
--- NOTE | 2022-09-01 17:52 | MHC.PT.DC ---
[facility] [place] Office [place] Office [place] Office [address] Jody Parker [address] [phone] F: [phone] F: [phone] F: [phone] F: [phone] Physical Therapy Discharge Report Diagnosis: L hip and low back pain/ sacrococcygeal Date of Surgery: Date of Evaluation: 06/21/22 Date of Discharge: 09/01/22 Treatments to Date: 4 Cancellations to Date: 3 No Shows to Date: 1 Discharge Status: Patient Elected to Stop Visit Non-compliance Discharge Summary: Patient last attended PT on 07/07/2022. She canceled her remaining sessions and is therefore discharged from PT at this time. Electronically signed by: Karina Burnett, PT, DPT Please sign and return to therapist. Thank you for your referral.
== END 2022-09-01 17:52 | disposition home or self-care (01) ==
LOC: HO.PT 17:00
PROVIDERS: Visit Provider Physician Assistant
DX: M53.3 Sacrococcygeal disorders, not elsewhere classified (principal); G89.29 Other chronic pain
CPT/HCPCS: 97035; 97110; 97140; 97161

== ENCOUNTER 2022-08-31 08:16 | Outpatient (REF) | payer OTHER, SELFPAY ==
[2022-08-31 08:32] LABS: MANUAL DIFF FLAG NO
[2022-08-31 08:44] LABS: Basophils Absolute Auto 0.1 X10*3/uL (0.0-0.2); Basophils Percent Auto 0.7 % (0-2); Eosinophils Absolute Auto 0.5 X10*3/uL (0.0-0.4); Eosinophils Percent Auto 6.4 % (0-4); Hematocrit 41.8 % (37.0-47.0); Hemoglobin 13.4 g/dl (12.0-16.0); Imm Gran Abs Auto 0.02 X10*3/uL (0.00-0.03); Imm Gran Pct Auto 0.2 % (0.0-0.4); Lymphocytes Absolute Auto 2.7 X10*3/uL (1.2-4.9); Lymphocytes Percent Auto 33.8 % (20-40); Mean Corpuscular HGB Conc 32.1 g/dl (31.0-35.0); Mean Corpuscular Hemoglobin 27.2 pg (27.0-33.0); Mean Corpuscular Volume 84.8 fL (80.0-98.0); Mean Platelet Volume 8.9 fL (9.4-12.3); Monocytes Absolute Auto 0.8 X10*3/uL (0.1-1.2); Monocytes Percent Auto 9.9 % (2-11); Platelet Count 433 X10*3/uL (160-400); Red Blood Count 4.93 X10*6/uL (4.20-5.50); Red Cell Distribution Width 13.9 % (11.0-16.0); White Blood Count 8.1 X10*3/uL (4.8-10.8)
[2022-08-31 09:24] LABS: Alanine Aminotransferase 9 U/L (0-31); Albumin Level 3.9 g/dL (3.5-5.0); Alkaline Phosphatase 88 U/L (39-117); Anion Gap 11 (12-20); Aspartate Amino Transferase 15 U/L (5-31); Bilirubin Total 0.6 mg/dL (0.0-1.0); Blood Urea Nitrogen 16 mg/dL (9-16); Calcium 9.5 mg/dL (8.4-10.2); Carbon Dioxide 27 mmol/L (22-29); Chloride 106 mmol/L (96-108); Cholesterol 138 mg/dL; Estimated Glomerular Filt Rate > 60; Glucose Random 103 mg/dL (60-115); HDL Cholesterol 36 mg/dL; LDL Cholesterol Calculated 68 mg/dl; Potassium 4.4 mmol/L (3.3-5.1); Sodium 140 mmol/L (135-145); Triglycerides 174 mg/dL
[2022-08-31 09:30] LABS: Syphilis Screen Nonreactive (Nonreactive)
[2022-08-31 09:31] LABS: HIV AB/AG Nonreactive (Nonreactive); HIV Num 1 0.06 S/CO (0.00-0.99)
[2022-08-31 09:40] LABS: Thyroid Stimulating Hormone 4.49 uIU/mL (0.32-4.0)
[2022-08-31 10:17] LABS: CT PCR NOT DETECTED (Not Detect.); NG PCR NOT DETECTED (Not Detect.)
== END 2022-08-31 08:17 | disposition home or self-care (01) ==
LOC: HO.LAB 08:16
PROVIDERS: PCP Internal Medicine; Visit Provider Internal Medicine
DX: Z11.4 Encounter for screening for human immunodeficiency virus [HIV] (principal); I10 Essential (primary) hypertension; M70.62 Trochanteric bursitis, left hip; Z20.2 Contact with and (suspected) exposure to infections with a predominantly sexual mode of transmission
CPT/HCPCS: 0353U; 80053; 80061; 84443; 85025; 86780; 87389

== ENCOUNTER 2022-10-06 12:03 | Outpatient (REF) | payer OTHER, SELFPAY ==
--- NOTE | 2022-10-06 08:45 | EMG_ITS ---
Bilateral median and ulnar motor and sensory studies were performed. Bilateral radial sensory studies were performed and paraspinal muscles were tested on right to left side. IMPRESSION: 1. Mild bilateral median neuropathy across carpal tunnel. 2. Mild right ulnar neuropathy across cubital tunnel. MD SHAUNA Prado/COCO / [id number]
== END 2022-10-06 12:04 | disposition home or self-care (01) ==
LOC: HO.NEURO 12:03
PROVIDERS: PCP Internal Medicine; Visit Provider Internal Medicine
DX: G56.03 Carpal tunnel syndrome, bilateral upper limbs (principal)
CPT/HCPCS: 95886; 95911

== ENCOUNTER → 2022-10-18 14:50 | Outpatient (BNVA) | payer OTHER, SELFPAY | PROVIDERS: PCP Internal Medicine; Visit Provider Neurological Surgery ==

== ENCOUNTER 2022-10-21 11:50 | Outpatient (REF) | payer OTHER, SELFPAY ==
--- NOTE | ~2022-10-21 | MR_ITS ---
EXAMINATION: MR LUMBAR SPINE WITHOUT CONTRAST CLINICAL INFORMATION: Left hip and lower back pain COMPARISON: None TECHNIQUE: MRI of the lumbar spine was obtained using routine sequences without contrast. FINDINGS: The last well-formed disc space is designated L5-S1. There is a rudimentary disc space at S1-S2. Trace anterolisthesis of L3 on L4. No suspicious marrow signal or focal osseous lesion. Small L1 vertebral body hemangioma. No significant marrow edema. Mild type II endplate marrow signal changes posteriorly at L3-L4 The vertebral body heights are maintained. Disc desiccation and height loss at L3-L4 The conus medullaris terminates at the level of L2. The distal spinal cord is normal in appearance. The cauda equina nerve roots appear normal. No significant abnormalities of the paraspinal musculature. There is nonspecific subcutaneous edema along the dorsal soft tissues of the thoracolumbar junction and upper lumbar spine. Limited evaluation of the intra-abdominal structures without significant abnormalities. Right renal parapelvic cyst. The abdominal aorta is of normal contour and caliber. SPINAL LEVELS: L1-L2: No significant spinal canal or neuroforaminal narrowing. Minimal disc protrusion. L2-L3: No significant spinal canal or neuroforaminal narrowing. L3-L4: Anterolisthesis, mild to moderate facet arthropathy. No significant central spinal canal stenosis. Mild to moderate bilateral neural foraminal narrowing L4-L5: No significant spinal canal or neuroforaminal narrowing. L5-S1: No significant spinal canal or neuroforaminal narrowing. Mild facet arthropathy. MR/MR lumbar spine wo con IMPRESSION: Mild degenerative changes of the lumbar spine as described above, most notable at L3-L4 where there is trace anterolisthesis and mild to moderate bilateral neural foraminal narrowing.
== END 2022-10-21 11:51 | disposition home or self-care (01) ==
LOC: HO.MRI 11:50
PROVIDERS: PCP Internal Medicine; Visit Provider Neurological Surgery
DX: M53.3 Sacrococcygeal disorders, not elsewhere classified (principal); G89.29 Other chronic pain
CPT/HCPCS: 72148

== ENCOUNTER → 2022-11-18 15:34 | Outpatient (BNVA) | payer OTHER, SELFPAY | PROVIDERS: PCP Internal Medicine; Visit Provider Physician Assistant ==

== ENCOUNTER → 2022-12-07 14:25 | Outpatient (BNVA) | payer OTHER, SELFPAY | PROVIDERS: PCP Internal Medicine; Visit Provider Anesthesiology ==

== ENCOUNTER 2023-01-17 06:06 | Outpatient (REF) | payer OTHER, SELFPAY ==
--- NOTE | ~2023-01-17 | FL_ITS ---
EXAMINATION: XR FLUOROSCOPY WITH IMAGES CLINICAL INFORMATION: Sacroiliitis, not elsewhere classified. COMPARISON: None available. TECHNIQUE: Fluoroscopy Supervised By: Dr. Faustino Joe. Fluoroscopy Time: 0.1 minutes. Cumulative Dose: 3.39 mGy. DAP: 0.0416 mGy-m2. Images: 1. FINDINGS: Image demonstrates needle placement and contrast injection over the left sacroiliac joint. FL/FL guidance in treatment room IMPRESSION: Fluoroscopy guidance for left sacroiliac joint injection.
== END 2023-01-17 06:07 | disposition home or self-care (01) ==
LOC: CF 06:06
PROVIDERS: Visit Provider Anesthesiology
DX: M46.1 Sacroiliitis, not elsewhere classified (principal); M53.3 Sacrococcygeal disorders, not elsewhere classified; M47.816 Spondylosis without myelopathy or radiculopathy, lumbar region; M51.36 Other intervertebral disc degeneration, lumbar region; M47.16 Other spondylosis with myelopathy, lumbar region; G89.4 Chronic pain syndrome; E66.01 Morbid (severe) obesity due to excess calories
CPT/HCPCS: Q9967; 27096

== ENCOUNTER 2023-01-17 14:11 | Outpatient (AMB) | payer OTHER, SELFPAY ==
--- NOTE | 2023-01-17 14:29 | A.OFFVIS_ITS ---
Intake Vital Signs 01/17/23 14:30 01/17/23 16:04 Height 4 ft 11 in 4 ft 11 in Weight 203 lb 203 lb BMI 41.0 41.0 BP 130/74 130/82 Blood Pressure Location Rt brachial Lt brachial Position Sitting Sitting Respiration 16 16 Pulse 82 76 Pulse Source Pulse Oximeter Pulse Oximeter Pulse Oximetry (%) 97 96 Oxygen Delivery Method Room Air Room Air Comment Pre-op post-op Intake Visit Reasons: L DX SIJ INJ/LOCAL *ATIVAN PRE* Allergies No Known Allergies [No Known Allergies*] Allergy (Verified 01/19/23 09:46) PFSH Medical History Breast lump Surgical History History of cholecystectomy Social History Alcohol intake: never Patient Tobacco Use Status: Never used Tobacco Current occupational status: employed Current occupation: [employer] Physical Exam Vital Signs: Last Vital Signs Pulse 76 01/17/23 16:04 Resp 16 01/17/23 16:04 BP 130/82 01/17/23 16:04 Pulse Ox 96 01/17/23 16:04 Oxygen Delivery Method Room Air 01/17/23 16:04 BMI result Body Mass Index 41.0 Assessment & Plan Assessment & Plan (1) Morbid obesity: Code(s): E66.01 - Morbid (severe) obesity due to excess calories (2) Chronic left SI joint pain: Code(s): M53.3 - Sacrococcygeal disorders, not elsewhere classified; G89.29 - Other chronic pain (3) Sacroiliitis: Code(s): M46.1 - Sacroiliitis, not elsewhere classified (4) Sacroiliac joint dysfunction: Code(s): M53.3 - Sacrococcygeal disorders, not elsewhere classified Plan: left diagnostic sacroiliac joint injection Informed consent was explained thoroughly to the patient.? All questions about benefits and risks for the procedure were answered. Patient came to the operating room and was positioned prone on the operating table with the pillow under the pelvis. Time out was performed delineating name and of the patient, allergies and the nature of the procedure. ?The lower back and buttocks of the patient were prepped with ChloraPrep prepped and draped with sterile utility towels.? C-arm was brought over the operating field and sq picture of patient's pelvis was demonstrated on the screen.? For the left joint tilting C-arm contralateral to the site of the joint the most posterior portion of the joints was superimposed with anterior silhouette of the joint.? Skin was injected in the projection of the joint slightly medial to the location of the joint with 25 gauge 1/2 inch needle using local lidocaine 2% .After that 22 gauge 3 and 1/2 inch needle was driven to the right joint in tunnel vision fashion.? When needle entered the joint capsule injection of the contrast was performed demonstrating intra-articular and minimally periarticular spread of the contrast.? After that 4 cc. of ropivacaine 0.5%? was injected into the? joint.? Upon completion of the injections the needle was removed Sterile dressing was applied.? Upon completion of the injection patient was taken outside of the operating room to the recovery room where recovered uneventfully. (5) Degeneration of lumbar intervertebral disc: Code(s): M51.36 - Other intervertebral disc degeneration, lumbar region (6) Facet arthropathy, lumbar: Code(s): M47.816 - Spondylosis without myelopathy or radiculopathy, lumbar region (7) Spondylosis, lumbar, with myelopathy: Code(s): M47.16 - Other spondylosis with myelopathy, lumbar region (8) Chronic pain syndrome: Code(s): G89.4 - Chronic pain syndrome Plan It looks like that most prominent pain generator of this patient is left sacroiliac joint. I offered this patient to have left sacroiliac joint injection. We briefly discussed sacroiliac joint fusion but for this procedure she needs to stop smoking for at least 3 months. Sacroiliac joint innervation stimulation is also possible however if I will do sacroiliac joint innervation stimulation the patient will not be able to receive sacroiliac joint fusion but the reversal is true after the fusion we can perform SI joint stimulation. I will schedule this appointment for left sacroiliac joint diagnostic injection. Orders: Orders FL guidance in treatment room 01/17/23 M46.1 - Sacroiliitis, not elsewhere classified Coding Level of Care Code Procedure Only Diagnoses Morbid obesity E66.01 Chronic left SI joint pain M53.3; G89.29 Sacroiliitis M46.1 Sacroiliac joint dysfunction M53.3 Degeneration of lumbar intervertebral disc M51.36 Facet arthropathy, lumbar M47.816 Spondylosis, lumbar, with myelopathy M47.16 Chronic pain syndrome G89.4
[2023-01-17 14:30] VITALS: BP 130/74; PULSE 82; RESP 16; O2SAT 97; BMI 41.0
[2023-01-17 16:04] VITALS: BP 130/82; PULSE 76; RESP 16; O2SAT 96; BMI 41.0
== END 2023-01-17 15:23 | disposition home or self-care (01) ==
PROVIDERS: PCP Internal Medicine; Visit Provider Anesthesiology
DX: M53.3 Sacrococcygeal disorders, not elsewhere classified (principal); M46.1 Sacroiliitis, not elsewhere classified
CPT/HCPCS: 27096

== ENCOUNTER → 2023-01-19 09:45 | Outpatient (BNVA) | payer OTHER, SELFPAY | PROVIDERS: PCP Internal Medicine; Visit Provider Anesthesiology ==

== ENCOUNTER 2023-01-19 09:59 | Outpatient (AMB) | payer OTHER, SELFPAY ==
--- NOTE | 2023-01-19 09:46 | MHC.OFFVIS ---
Intake Intake Visit Reasons: L DX SIJ INJ/LOCAL 01/17/23 Allergies No Known Allergies [No Known Allergies*] Allergy (Verified 01/19/23 09:46) HPI HPI Comments History of Present Illness Details Katherine is on the phone with me today to discuss the results of the left sacroiliac joint injection. She reports no pain relief whatsoever after sacroiliac joint injection. She reports pain aggravation when seen tries to flex her spine forward and backwards but he reports more pain aggravation with flexing backwards now. I offered this patient to go for diagnostic medial branch block L3-L4 L5 on the left. I explained to her risks and benefits of the procedure. The patient agreed to go for the diagnostic left medial branch block L3-L4 L5. Prior: very pleasant 52 years old female who is working for [employer].? She is presenting today in my office with complains on pain on the left side of the lower back without radiation.? She reports that she is suffering from this pain to for 2 years. She was a subject of physical therapy with no help improvement she had chiropractic manipulation with [facility] without improvement she had massage therapy and occupational therapy without improvement.? She tries NSAIDs without much of the success. X-rays of lumbar spine and MRI of the lumbar spine the results of the MRI dictated as below.? She never received injections in her sacroiliac joint.? Her past medical history significant for headaches history of stroke and history of gallstones and gallbladder removal in 2016, she smokes cigarettes 1 pack per day she drinks alcohol 1 drink a week she denies using recreational drugs she admits drinking caffeinated beverages [facility] Medical History Breast lump Surgical History History of cholecystectomy Social History Alcohol intake: never Patient Tobacco Use Status: Never used Tobacco Current occupational status: employed Current occupation: [email or web address] Review of Systems Const All systems reviewed & are unremarkable except as noted in HPI and below Physical Exam Const Nutritional Appearance: obese morbidly obese Eyes EOM: EOMs intact bilaterally Results Reviewed Results Reviewed: MRI lumbar spine 10/21/2022. Trace anterolisthesis of L3 on L4. No suspicious marrow signal or focal osseous lesion. Small L1 vertebral body hemangioma. No significant marrow edema. Mild type 2 endplate marrow signal changes posteriorly at L3-L4. The vertebral body heights are maintained. Disc desiccation and height loss at L3-L4. The conus medullaris terminates at the level of L2. The distal spinal cord is normal in appearance. The cauda equina nerve roots appear normal. No significant abnormalities in the paraspinal musculature. Nonspecific subcutaneous edema along the dorsal soft tissues at the thoracolumbar junction and upper lumbar spine. Limited evaluation of the intra-abdominal structures without significant abnormalities. Right renal parapelvic cyst. The abdominal aorta is of normal contour and caliber. Spinal level: L1-L2: No significant spinal canal or neural foraminal narrowing. Minimal disc protrusion. L2-L3: No significant spinal canal or neural foraminal narrowing L3-L4 anterolisthesis [id number] facet arthropathy no significant central canal stenosis. [id number]-sihlicof bilateral neural foraminal narrowing. L3-L4: No significant spinal canal or neural foraminal narrowing. L5-S1: No significant spinal canal or neural foraminal narrowing. Mild facet arthropathy. Assessment & Plan Assessment & Plan (1) Chronic pain syndrome: Code(s): G89.4 - Chronic pain syndrome (2) Spondylosis, lumbar, with myelopathy: Code(s): M47.16 - Other spondylosis with myelopathy, lumbar region (3) Facet arthropathy, lumbar: Code(s): M47.816 - Spondylosis without myelopathy or radiculopathy, lumbar region (4) Degeneration of lumbar intervertebral disc: Code(s): M51.36 - Other intervertebral disc degeneration, lumbar region (5) Sacroiliac joint dysfunction: Code(s): M53.3 - Sacrococcygeal disorders, not elsewhere classified (6) Sacroiliitis: Code(s): M46.1 - Sacroiliitis, not elsewhere classified Plan MRI of this patient is significant for Modic type 2 changes L3-L4 it might be innocent bystander findings not actually related to the clinical situation. However left SI joint resulted in no good pain improvement. We agreed that I will perform L2,L3, L4 medial branch block on the left diagnostic to find out what role the medial branches on the left play in her condition. Potentially if diagnostic MBB is not effective for pain control L3-L4 intrasept procedure could be considered. I will schedule for now her for medial branch block as above. Patient Instructions: I here by testify that I spent 30 minutes today in conversation with the patient as well as in planning her care and organizing her note. Telehealth Telehealth Location of provider rendering services: practice address Location of patient: address on file Patient Identification confirmed using: Name, : Yes Telehealth method: voice only Patient verbally consented to treatment: Yes Patient verbally consented to billing insurance company: Yes Patient informed of any privacy concerns related to visit: Yes Coding Level of Care Code Tele Est Pt Level 4 (45167) Diagnoses Chronic pain syndrome G89.4 Spondylosis, lumbar, with myelopathy M47.16 Facet arthropathy, lumbar M47.816 Degeneration of lumbar intervertebral disc M51.36 Sacroiliac joint dysfunction M53.3 Sacroiliitis M46.1
== END 2023-01-19 10:00 | disposition home or self-care (01) ==
PROVIDERS: PCP Internal Medicine; Visit Provider Anesthesiology
DX: G89.4 Chronic pain syndrome (principal); M47.16 Other spondylosis with myelopathy, lumbar region; M47.816 Spondylosis without myelopathy or radiculopathy, lumbar region; M51.36 Other intervertebral disc degeneration, lumbar region; M53.3 Sacrococcygeal disorders, not elsewhere classified; M46.1 Sacroiliitis, not elsewhere classified
CPT/HCPCS: 99214

== ENCOUNTER 2023-02-03 08:54 | Day surgery (SDC) | payer OTHER, SELFPAY ==
--- NOTE | ~2023-02-03 | FL_ITS ---
EXAMINATION: XR FLUOROSCOPY WITH IMAGES CLINICAL INFORMATION: Left medial branch block COMPARISON: None TECHNIQUE: Fluoroscopy Supervised By: Dr. Faustino Joe. Fluoroscopy Time: 0.5 minutes. Cumulative Dose: 8.66 mGy. DAP: 2.36 Gycm2. Images: 4. FINDINGS: A radiopaque needle projects along the margin of L5-S1 with injection of contrast. This then moved to the level of L4-L5 and L3-L4. FL/FL guidance in OR IMPRESSION: Fluoroscopic guidance for left medial branch block. Please refer to procedural report for further information.
[2023-02-03 08:46] VITALS: BMI 42.0
--- NOTE | 2023-02-03 11:46 | HO.ANESPROP2 ---
[facility] Active Problems Active Problems: All Active Problems (Updated 01/17/23 @ 15:21 by Faustino Joe MD) Chronic pain syndrome (Acute) Spondylosis, lumbar, with myelopathy (Acute) Facet arthropathy, lumbar (Acute) Degeneration of lumbar intervertebral disc (Acute) Sacroiliac joint dysfunction (Acute) Sacroiliitis (Acute) Morbid obesity (Acute) Chronic left SI joint pain (Acute) Past Medical History Medical History Breast lump Family History Family history of problems with anesthesia: No Surgical History Surgical History History of cholecystectomy History of Problems with Anesthesia: No Social History Social History Alcohol intake: never Patient Tobacco Use Status: Never used Tobacco Are you DNR?: No Advance Directives: No Advance Directives Information Provided: Yes Recently lost weight without trying: No Nutrition Risks: No Nutritional Risk Current occupational status: employed Current occupation: [employer] Allergies Allergy/AdvReac Type Severity Reaction Status Date / Time No Known Allergies Allergy Verified 01/19/23 09:46 [No Known Allergies*] Home Medications Medication Instructions Recorded Confirmed Last Taken Type aspirin 81 mg tablet,delayed 81 mg PO DAILY 06/08/22 02/01/23 History release losartan 50 mg-hydrochlorothiazide 1 tab PO DAILY 06/08/22 Unknown History 12.5 mg tablet minoxidil 2.5 mg tablet 2.5 mg PO BEDTIME 06/08/22 Unknown History rosuvastatin 20 mg tablet 20 mg PO DAILY 06/08/22 Unknown History Exam Exam Date and Time: February 03, 2023 1146 Height,Weight and Vital Signs: Height 4 ft 11 in Weight 94.347 kg Airway Mallampati Class: II TM Dist: >3cm Neck ROM: Full Heart: rrr Lungs: cta Assessment and Plan Assessment Anesthesia Assessment: Anesthesia Plan Discussed and Chart Reviewed Final Anesthetic Review Family History of Problems with Anesthesia: No History of Problems with Anesthesia: No NPO: Yes ASA Class: II Final Preanesthetic Review: No Changes in Pt Med Stat, Meds/Allgs Chart Reviewed and Consent Obtained/Reviewed Patient Risk: Intermediate Procedure Risk: Intermediate Anesthetic Plan Anesthetic Plan: MAC: Disposition: Standard PACU
--- NOTE | 2023-02-03 12:39 | MHC.SHP ---
Pre-Procedural Eval Section A Date of Service: 02/03/23 The patient is an INPATIENT: No Changes since office visit: Yes Patient answered all questions The History & Physical has been completed within 30 days and I have reviewed it.: No Section B Chief Complaint: Spondylosis without myelopathy or radiculopathy Details of Present Illness: as above Relevant Family History (Specify if Yes): No Relevant Social History: None Present Medications: None Medical History: No relevant PMH History of Previous Operations: No relevant previous surgery Allergies: Allergies Allergy/AdvReac Type Severity Reaction Status Date / Time No Known Allergies Allergy Verified 01/19/23 09:46 [No Known Allergies*] Review of Systems Sugical H&P ROS: Negative: Cardiovascular, Respiratory, Neurological, Psychiatric, Hem-Onc, Allergic/Immunologic, Gastrointestinal, Genitourinary, Musculoskeletal, Integumentary, Endocrine and Eyes/Ears/Nose/Throat and Yes, Specify: Constitution (obesity) Exam Surgical H&P Exam: Normal: HEENT, Normal: Heart, Normal: Lungs, Normal: Extremities, Normal: Skin and Normal: Neurological and Significant Findings: Abdomen (enlarged 2 to fat) Plan Diagnosis/Plan: Unchanged I have reviewed the history and physical and performed a pertinent physical examination on my patient. No changes have occurred unless specified. Time Spent With Patient Time: Total time managing care of this patient today 15____ minutes.
[2023-02-03 13:15] VITALS: BP 125/68; PULSE 63; RESP 18; TEMP 36.9; O2SAT 99
--- NOTE | 2023-02-03 13:16 | P.BOP_ITS ---
Brief Operative Note Date of Service: 02/03/23 Pre-op diagnosis: spondylosis lumbar Post-op diagnosis: same Procedure: MBB diagnostic L2- L3- L4- DRL5 left Surgeon: Faustino Joe MD Anesthesia: GETA Was an Obstetrics And Gynecology Professor used for this Procedure?: No Estimated blood loss (mL): 0 Condition: stable Disposition: PACU
--- NOTE | 2023-02-03 13:22 | P.OP_ITS ---
Operative Note Operative Note Date of Service: 02/03/23 Narrative: Diagnostic medial branch block L3,L4 dorsal ramus L5 on the left? ? ?Informed consent was explained to the patient. All questions were explained and? answered.? The patient was taken inside the operating room where she was positioned prone on the operating table. Time-out was performed delineating correct site, side, the nature of the procedure, patient's allergy, . All operating room staff was participating in OR time-out procedure. ? ? The lower back was prepped with ChloraPrep and draped with sterile towels.? C- arm was brought over the operating field and sq picture of L3- L4-, L5 vertebra and S1 AREA were delineated on the screen. Point of interest were delineated as confluence of superior articular process ofL3 L4 and L5 vertebra on the left with corresponding transverse processes as well as confluence of the sacral alae on the left with superior articular process of S1.? The projection of the point of interest to the skin were injected with the small amount of local anesthetic lidocaine 2% 1-1.5 cc.? After that 22 gauge 5 inch spinal needle was driven sequentially to the points of interest in tunnel vision fashion. After needles gently contacted the bone at the point of interests the needle was injected with small amount of the contrast.? The injection of the contrast did not demonstrate any intravascular or intrathecal spread of the contrast.? After that injection of the? ropivacaine 0.5%-1cc was performed at each needle location.??after that the needles were removed and Bandaids were applied. ? Upon completion of the injections? needle was? removed and sterile Band-Aids were applied.? The patient tolerated procedure very well.
[2023-02-03 13:30] VITALS: BP 125/61; PULSE 63; RESP 15; TEMP 36.3; O2SAT 97
== END 2023-02-03 13:57 | disposition home or self-care (01) ==
PROVIDERS: PCP Internal Medicine; Visit Provider Anesthesiology
PROC: (CPT 64493; principal; 2023-02-03 11:10)
DX: M47.16 Other spondylosis with myelopathy, lumbar region (principal); M47.816 Spondylosis without myelopathy or radiculopathy, lumbar region; G89.4 Chronic pain syndrome; M51.36 Other intervertebral disc degeneration, lumbar region; M53.3 Sacrococcygeal disorders, not elsewhere classified; M46.1 Sacroiliitis, not elsewhere classified; R51.9 Headache, unspecified; Z86.73 Personal history of transient ischemic attack (TIA), and cerebral infarction without residual deficits; E66.01 Morbid (severe) obesity due to excess calories; Z90.49 Acquired absence of other specified parts of digestive tract; F17.210 Nicotine dependence, cigarettes, uncomplicated; Z79.82 Long term (current) use of aspirin; Z79.899 Other long term (current) drug therapy
CPT/HCPCS: 64493; 64494; J2250; J3301

== ENCOUNTER → 2023-02-03 08:54 | Outpatient (BNV) | payer OTHER, SELFPAY | PROVIDERS: PCP Internal Medicine; Visit Provider Anesthesiology | DX: M47.816 Spondylosis without myelopathy or radiculopathy, lumbar region (principal) | CPT/HCPCS: 64493; 64494 ==

== ENCOUNTER 2023-02-15 08:39 | Outpatient (REF) | payer OTHER, SELFPAY ==
[2023-02-15 10:01] LABS: Cholesterol 199 mg/dL (<200); HDL Cholesterol 35 mg/dL (>40); LDL Cholesterol Calculated 115 mg/dL (<100); Triglycerides 245 mg/dL (<150)
== END 2023-02-15 08:40 | disposition home or self-care (01) ==
LOC: HO.LAB 08:39
PROVIDERS: PCP Internal Medicine; Visit Provider Internal Medicine
DX: E78.2 Mixed hyperlipidemia (principal); I10 Essential (primary) hypertension; Z72.0 Tobacco use
CPT/HCPCS: 36415; 80061

== ENCOUNTER 2023-02-16 11:16 | Outpatient (REF) | payer OTHER, SELFPAY ==
--- NOTE | ~2023-02-16 | MM_ITS ---
EXAMINATION: MM DIAGNOSTIC DIGITAL BREAST TOMOSYNTHESIS, BILATERAL CLINICAL INFORMATION: Patient presents for diagnostic follow-up of left breast calcifications and annual screening of right breast. COMPARISON: Mammography: This study is compared with prior mammograms dating back to 2019. TECHNIQUE: Digital breast tomosynthesis is performed in both the craniocaudal and mediolateral oblique views along with computer-aided detection (CAD). Synthesized 2D images are generated from the tomosynthesis. FINDINGS: There are scattered areas of fibroglandular density (ACR BI-RADS breast composition Category b). There are faintly evident calcifications in the 3:00 region of the left breast which do not appear significantly different than on the prior examination with magnification from 09/29/2021. Continued short interval mammographic follow-up of the left breast is advised in 6 months. There are no suspicious findings in the left breast. In the right breast, there are no significant masses, abnormal calcifications, or other abnormalities. MM/MM tomosynthesis diagnostic BI IMPRESSION: No mammographic evidence of malignancy in either breast. No significant interval change in faint, probably benign left breast calcifications for which short interval six-month follow-up mammography with magnification of the left breast is advised. ASSESSMENT: BI-RADS BI-RADS 3 - Probably benign finding(s) - 12 month follow-up suggested RECOMMENDATION: 6 Month F/U Results were provided to the patient at time of visit by the technologist. This patient's information was entered into a reminder system with a target due date for their next mammogram.
== END 2023-02-16 11:17 | disposition home or self-care (01) ==
LOC: HO.MAMMO 11:16
PROVIDERS: PCP Internal Medicine; Visit Provider Internal Medicine
DX: R92.1 Mammographic calcification found on diagnostic imaging of breast (principal)
CPT/HCPCS: 77062; 77066

== ENCOUNTER → 2023-02-16 11:30 | Outpatient (BNV) | payer OTHER, SELFPAY | PROVIDERS: PCP Internal Medicine; Visit Provider Radiology Diagnostic Radiology | DX: R92.1 Mammographic calcification found on diagnostic imaging of breast (principal) | CPT/HCPCS: 77062; 77066 ==

== ENCOUNTER 2023-02-27 08:28 | Outpatient (AMB) | payer OTHER, SELFPAY ==
--- NOTE | 2023-02-27 08:28 | MHC.OFFVIS ---
Intake Intake Visit Reasons: Intracept Procedure Discussion Allergies No Known Allergies [No Known Allergies*] Allergy (Verified 02/27/23 08:29) HPI HPI Comments History of Present Illness Details Katherine is on the phone with me today to discuss the results of the left sacroiliac joint injection. She reports no pain relief whatsoever after sacroiliac joint injection. She will after that had diagnostic medial branch block L2-L3 L4 does ramus L5 on the left on 02/03/2023. She reported no pain relief from this injection whatsoever. She states now that the pain affects not only the right side but also the left side. Attention was attracted that the patient has Modic type 2 changes on the MRI at L3 and L4 vertebra. She reports pain aggravation when seen tries to flex her spine forward, she reports pain aggravation with prolonged standing and walking. She reports some pain aggravation with sitting. Today we discussed possibility to treat her condition with intracept procedure. Risks benefits and alternatives were explained to the patient. She agreed to go for the procedure. Prior: very pleasant 52 years old female who is working for [employer].? She is presenting today in my office with complains on pain on the left side of the lower back without radiation.? She reports that she is suffering from this pain to for 2 years. She was a subject of physical therapy with no help improvement she had chiropractic manipulation with [facility] without improvement she had massage therapy and occupational therapy without improvement.? She tries NSAIDs without much of the success. X-rays of lumbar spine and MRI of the lumbar spine the results of the MRI dictated as below.? She never received injections in her sacroiliac joint.? Her past medical history significant for headaches history of stroke and history of gallstones and gallbladder removal in 2016, she smokes cigarettes 1 pack per day she drinks alcohol 1 drink a week she denies using recreational drugs she admits drinking caffeinated beverages [facility] Medical History Breast lump Surgical History History of cholecystectomy Social History Alcohol intake: never Patient Tobacco Use Status: Never used Tobacco Current occupational status: employed Current occupation: [employer] [place] Review of Systems Const All systems reviewed & are unremarkable except as noted in HPI and below Results Reviewed Results Reviewed: MRI lumbar spine 10/21/2022. Trace anterolisthesis of L3 on L4. No suspicious marrow signal or focal osseous lesion. Small L1 vertebral body hemangioma. No significant marrow edema. Mild type 2 endplate marrow signal changes posteriorly at L3-L4. The vertebral body heights are maintained. Disc desiccation and height loss at L3-L4. The conus medullaris terminates at the level of L2. The distal spinal cord is normal in appearance. The cauda equina nerve roots appear normal. No significant abnormalities in the paraspinal musculature. Nonspecific subcutaneous edema along the dorsal soft tissues at the thoracolumbar junction and upper lumbar spine. Limited evaluation of the intra-abdominal structures without significant abnormalities. Right renal parapelvic cyst. The abdominal aorta is of normal contour and caliber. Spinal level: L1-L2: No significant spinal canal or neural foraminal narrowing. Minimal disc protrusion. L2-L3: No significant spinal canal or neural foraminal narrowing L3-L4 anterolisthesis [id number] facet arthropathy no significant central canal stenosis. Gxoq-ig-qfgquifp bilateral neural foraminal narrowing. L3-L4: No significant spinal canal or neural foraminal narrowing. L5-S1: No significant spinal canal or neural foraminal narrowing. Mild facet arthropathy. Assessment & Plan Assessment & Plan (1) Chronic pain syndrome: Code(s): G89.4 - Chronic pain syndrome (2) Spondylosis, lumbar, with myelopathy: Code(s): M47.16 - Other spondylosis with myelopathy, lumbar region (3) Facet arthropathy, lumbar: Code(s): M47.816 - Spondylosis without myelopathy or radiculopathy, lumbar region (4) Degeneration of lumbar intervertebral disc: Code(s): M51.36 - Other intervertebral disc degeneration, lumbar region (5) Vertebrogenic low back pain: Code(s): M54.51 - Vertebrogenic low back pain Plan MRI of this patient is significant for Modic type 2 changes L3-L4 it might be innocent bystander findings not actually related to the clinical situation. However left SI joint resulted in no good pain improvement. L2,L3, L4 L5 medial branch block on the left ALSO RESULTED IN NO PAIN IMPROVEMENT. The patient today discussed with me in details intercept procedure, we were planning to do it at L3-L4 level. I explained to the patient that this procedure has no pre-requisite diagnostic injection and we have to just perform the actual procedure to see if it will help her pain. However at the same time the risk of the procedure is very small, it is very safe and the only risk is bleeding infection. She agreed to go for this procedure. I will schedule this procedure accordingly in the operating room under general anesthesia. She stated that she cannot go for this procedure earlier than March 27. Patient Instructions: I here by testify that I spent 30 minutes in conversation with this patient as well as planning her care and organizing her note. Telehealth Telehealth Location of provider rendering services: practice address Location of patient: address on file Patient Identification confirmed using: Name, : Yes Telehealth method: voice only Patient verbally consented to treatment: Yes Patient verbally consented to billing insurance company: Yes Patient informed of any privacy concerns related to visit: Yes Coding Level of Care Code Tele Est Pt Level 4 (21015) Diagnoses Chronic pain syndrome G89.4 Spondylosis, lumbar, with myelopathy M47.16 Facet arthropathy, lumbar M47.816 Degeneration of lumbar intervertebral disc M51.36 Vertebrogenic low back pain M54.51
== END 2023-02-27 08:47 | disposition home or self-care (01) ==
LOC: HO.PMC 08:28
PROVIDERS: PCP Internal Medicine; Visit Provider Anesthesiology
DX: G89.4 Chronic pain syndrome (principal); M47.16 Other spondylosis with myelopathy, lumbar region; M47.816 Spondylosis without myelopathy or radiculopathy, lumbar region; M51.36 Other intervertebral disc degeneration, lumbar region; M54.51 Vertebrogenic low back pain
CPT/HCPCS: 99214

== ENCOUNTER → 2023-02-27 08:28 | Outpatient (BNVA) | payer OTHER, SELFPAY | PROVIDERS: PCP Internal Medicine; Visit Provider Anesthesiology ==

== ENCOUNTER 2023-03-31 05:57 | Day surgery (SDC) | payer OTHER, SELFPAY ==
[2023-03-28 14:20] VITALS: BMI 42.0
--- NOTE | 2023-03-30 11:38 | HO.ANESPROP2 ---
Documented by User: Luzmaria Gaming NP 03/30/23 11:40 HPI - Anesthesia Eval Consult details Narrative: 52yo F for L3-L4 basivertebral nerve ablation Intracept RFA s/p medial branch block 02/2023 with MAC PMFSH Active Problems Active Problems: All Active Problems (Updated 03/28/23 @ 14:19 by Katherine Alonso RN) Vertebrogenic low back pain (Acute) Chronic pain syndrome (Acute) Spondylosis, lumbar, with myelopathy (Acute) Facet arthropathy, lumbar (Acute) Degeneration of lumbar intervertebral disc (Acute) Sacroiliac joint dysfunction (Acute) Sacroiliitis (Acute) Morbid obesity (Acute) Chronic left SI joint pain (Acute) Past Medical History Medical History (Updated 03/28/23 @ 14:19 by Katherine Alonso RN) Subclinical hypothyroidism TIA (transient ischemic attack) Elevated cholesterol HTN (hypertension) Low back pain Breast lump Family History Family history of problems with anesthesia: No Surgical History Surgical History (Updated 03/28/23 @ 14:14 by Katherine Alonso RN) History of surgery History of cholecystectomy History of Problems with Anesthesia: No Social History Social History Alcohol intake: never Patient Tobacco Use Status: Current everyday Tobacco user Tobacco use type: Cigarette Cigarette Packs Per Day: 0.5 Cigarettes Per Day: 10.0 Second Hand Smoke Exposure: No Use of substances other than those prescribed or required for medical reasons: No Are you DNR?: No Advance Directives: No Advance Directives Information Provided: Yes Advance Directives on File: No Current occupational status: employed Current occupation: [employer] Allergies Allergy/AdvReac Type Severity Reaction Status Date / Time No Known Allergies Allergy Verified 02/27/23 08:29 [No Known Allergies*] Home Medications Medication Instructions Recorded Confirmed Last Taken Type aspirin 81 mg tablet,delayed 81 mg PO DAILY 06/08/22 03/28/23 02/01/23 History release losartan 50 mg-hydrochlorothiazide 1 tab PO DAILY 06/08/22 03/28/23 Unknown History 12.5 mg tablet minoxidil 2.5 mg tablet 2.5 mg PO BEDTIME 06/08/22 03/28/23 Unknown History rosuvastatin 20 mg tablet 20 mg PO DAILY 06/08/22 03/28/23 Unknown History Exam Exam Date and Time: March 30, 2023 1138 Height,Weight and Vital Signs: Height 4 ft 11 in Weight 94.347 kg Assessment and Plan Assessment Anesthesia Assessment: Chart Reviewed Final Anesthetic Review Family History of Problems with Anesthesia: No History of Problems with Anesthesia: No Documented by User: Ze Daniels MD 03/31/23 08:34 [facility] Past Medical History Medical History (Updated 03/28/23 @ 14:19 by Katherine Alonso RN) Subclinical hypothyroidism TIA (transient ischemic attack) Elevated cholesterol HTN (hypertension) Low back pain Breast lump Narrative: More accurately, last year had a tiny left CVA per MRI, not a TIA. CTA showed <50% stenoses. Surgical History Surgical History (Updated 03/28/23 @ 14:14 by Katherine Alonso RN) History of surgery History of cholecystectomy Social History Social History Alcohol intake: never Patient Tobacco Use Status: Current everyday Tobacco user Tobacco use type: Cigarette Cigarette Packs Per Day: 0.5 Cigarettes Per Day: 10.0 Second Hand Smoke Exposure: No Use of substances other than those prescribed or required for medical reasons: No Are you DNR?: No Advance Directives: No Advance Directives Information Provided: Yes Advance Directives on File: No Current occupational status: employed Current occupation: [employer] Allergies Allergy/AdvReac Type Severity Reaction Status Date / Time No Known Allergies Allergy Verified 02/27/23 08:29 [No Known Allergies*] Home Medications Medication Instructions Recorded Confirmed Last Taken Type aspirin 81 mg tablet,delayed 81 mg PO DAILY 06/08/22 03/28/23 02/01/23 History release losartan 50 mg-hydrochlorothiazide 1 tab PO DAILY 06/08/22 03/28/23 Unknown History 12.5 mg tablet minoxidil 2.5 mg tablet 2.5 mg PO BEDTIME 06/08/22 03/28/23 Unknown History rosuvastatin 20 mg tablet 20 mg PO DAILY 06/08/22 03/28/23 Unknown History Exam Airway Mallampati Class: I TM Dist: <=3cm Neck ROM: Full Loose/Missing/Broken Teeth: No Heart: ok Lungs: ok Assessment and Plan Assessment Anesthesia Assessment: Anesthesia Plan Discussed Final Anesthetic Review NPO: Yes ASA Class: III Final Preanesthetic Review: No Changes in Pt Med Stat, Meds/Allgs Chart Reviewed, Consent Obtained/Reviewed and Anes Risks/Benef Reviewed Patient Risk: Intermediate Procedure Risk: Intermediate Anesthetic Plan Anesthetic Plan: GA and Agree w/ Assess. and Plan Disposition: Standard PACU
[2023-03-31] VITALS (10 sets, daily range): BP systolic 127–143; BP diastolic 64–86; PULSE 58–80; RESP 16–18; TEMP 36.1–36.4; O2SAT 95–98; BMI 36.8
--- NOTE | ~2023-03-31 | FL_ITS ---
EXAMINATION: XR FLUOROSCOPY WITH IMAGES CLINICAL INFORMATION: L3-L4 Intracept RFA. COMPARISON: None available. TECHNIQUE: Fluoroscopy Supervised By: Dr. Faustino Joe. Fluoroscopy Time: 2 minutes 35 seconds. Cumulative Dose: 103.097 mGy. DAP: 28.091 Gycm2. Images: 6. FINDINGS: Fluoroscopy images demonstrate transpedicular probes and instrument in the L3 and L4 vertebrae FL/FL guidance in OR IMPRESSION: Fluoroscopy guidance for pain management procedure.
[2023-03-31] MEDS: Lactated Ringers 1,000 ML 100 ML IVCONT (06:52)
--- NOTE | 2023-03-31 07:12 | MHC.SHP ---
Pre-Procedural Eval Section A Date of Service: 03/31/23 The patient is an INPATIENT: No Changes since office visit: Yes Patient answered all questions The History & Physical has been completed within 30 days and I have reviewed it.: No Section B Chief Complaint: Vertebrogenic low back pain Details of Present Illness: as above Relevant Family History (Specify if Yes): No Relevant Social History: None Present Medications: None Medical History: No relevant PMH History of Previous Operations: No relevant previous surgery Allergies: Allergies Allergy/AdvReac Type Severity Reaction Status Date / Time No Known Allergies Allergy Verified 02/27/23 08:29 [No Known Allergies*] Review of Systems Sugical H&P ROS: Negative: Cardiovascular, Respiratory, Neurological, Psychiatric, Hem-Onc, Allergic/Immunologic, Gastrointestinal, Genitourinary, Integumentary, Endocrine and Eyes/Ears/Nose/Throat and Yes, Specify: Constitution (obesity) and Musculoskeletal (LBP, spondylosys lumbar spine, vertebrogenoc low back pain) Exam Surgical H&P Exam: Normal: HEENT, Normal: Heart, Normal: Lungs, Normal: Extremities, Normal: Skin and Normal: Neurological and Significant Findings: Abdomen (enlarged) Plan Diagnosis/Plan: Unchanged I have reviewed the history and physical and performed a pertinent physical examination on my patient. No changes have occurred unless specified. Time Spent With Patient Time: Total time managing care of this patient today ___5_ minutes.
--- NOTE | 2023-03-31 09:46 | PM.OP ---
Brief Operative Note Date of Service: 03/31/23 Pre-op diagnosis: vertebrogenic back pain Post-op diagnosis: same Procedure: L3- L4 RFA Inreacept Implants: none Surgeon: Faustino Joe MD Anesthesia: GLMA Was an Fire Protection Designer used for this Procedure?: No Estimated blood loss (mL): 10 Pathology: none sent Condition: stable Disposition: PACU
--- NOTE | 2023-03-31 09:47 | W.PM.OPN ---
Operative Note Operative Note Date of Service: 03/31/23 Narrative: RFA of the L3 and L4 basivertebral nerves Intracept. Procedure: Basivertebral nerve (BVN) ablation? Intracept Procedure {L3, L4, Indications for Procedure: Katherine is very pleasant 52 years old female who is suffering from axial low back pain exacerbated by forward flexing, prolong sitting, prolonged standing, walking. She was sent to MRI and was discovered with Modic type 2 endplate changes at L3-L4 vertebras. Prior to that she received multiple injections to treat axial back pain including medial branch blocks and sacroiliac joint injections bilateral however those injections were not effective for control of her pain. She was offered Intracept procedure, she came today to the operating room to receive the procedure. Informed consent was obtained delineating risk of bleeding, infection peripheral nerve damage , damage to spinal canal with CSF leak , post dural puncture headache. The patient came to the operating room in 1 position prone on the operating table. [employer] monitors were applied, general anesthesia was induced and LMA was inserted without complications. Procedure Time Out: Patient ID confirmed, correct procedure to be performed, correct site and/or side for procedure , need for antibiotic administration, need for DVT prophylaxis, risk of fire. The patient received cefazolin 2 g intravenously 30 minutes before onset of the procedure as well as dexamethasone 4 mg intravenously push. The back was sterilely prepped with ChloraPrep twice and draped. With sterile self adhesive utility towels and covered with full body drape. To sterilely draped C-arms were positioned in fixed anterior posterior and lateral positions alongside the patient's body. The AP C-arm was rotated to square off the superior endplate at L4 vertebra and rotated to the right to obtain an oblique view. The superolateral L4 pedicle was identified, and the skin entry point identified and infiltrated with mixture of lidocaine 2% with ropivacaine 0.5% 1-1 lidocaine using a 25-gauge 1-1/2 inch needle. A 22-gauge 5-inch spinal needle was used to anesthetize the track to the pedicle and periosteum and confirm the introducer cannula trajectory. A stab skin incision was made with 10. scalpel blade 0.5 cm. The introducer cannula with bevel tip was then introduced through the skin, subcutaneous tissue and paraspinal muscle until bony contact was made. The position was checked in the AP and Lateral plane. Using a mallet, the trocar was then advanced thru the pedicle to the posterior aspect of the vertebral body using a combination of AP and lateral views to ensure appropriate traversing of the pedicle and no breaching of the pedicle medially and inferiorly. Once the trocar was in the posterior aspect of the L4 vertebral body, the trocar was removed from the cannula and the curved cannula assembly (CCA) with the nitinol J-stylet was inserted. The spin wheel was rotated counterclockwise permitting excursion of the J-stylet. The curved cannula assembly was then advanced using a mallet in 1-2 mm increments. The J-stylet was observed to traverse the vertebral body in the AP and lateral views. The J-stylet was removed and replaced with the straight stylet to reach the BVN target. Target was reached when the tip of the stylet was 45 % anterior of the posterior wall of the L4 in the lateral view midway between the superior and inferior endplates and it crossed the midline of the L4 spinous process in the AP view. The stylet was then removed. The bipolar radiofrequency (RF) probe was connected to the generator and then inserted into the introducer cannula in its ablation position. The spin wheel was rotated clockwise to retract the PEEK sleeve to expose the proximal electrode on the radiofrequency probe. The BVN was then ablated using [employer]?s standard RFG algorithm. While the ablation was occurring at below level the C-arm was moved to visualize the target at the superolateral aspect of the L3 vertebral body using the approach similar to the L4 vertebral body this time on the left side. The C-arm was rotated to square off the superior endplate at L3 and rotated left to obtain an oblique view. The superolateral left L3 pedicle was identified, and the skin entry point identified and infiltrated with 1% lidocaine using a 25- gauge 1-1/2 inch needle. A 22-gauge 5-inch spinal needle was used to anesthetize the track to the pedicle and periosteum and confirm the introducer cannula trajectory. A skin incision was made with 10. scalpel blade 5 mm. The introducer cannula with bevel tip was then introduced through the skin, subcutaneous tissue and paraspinal muscle until bony contact was made. The position was checked in the AP and Lateral plane. Using a mallet, the trocar was then advanced through the pedicle to the posterior aspect of the vertebral body using a combination of AP and lateral views to ensure appropriate traversing of the pedicle and no breaching of the pedicle medially or inferiorly. Once the trocar was in the posterior aspect of the L3 vertebral body, the trocar was removed from the cannula and the curved cannula assembly with the nitinol J-stylet was inserted. The spin wheel was rotated counterclockwise permitting excursion of the J-stylet. The curved cannula assembly was then advanced using a mallet in 1-2 mm increments. The J-stylet was observed to traverse the vertebral body in the AP and lateral views.The J-stylet was removed and replaced with the straight stylet to reach the BVN target. Target was reached when the tip of the stylet was 45 % anterior of the posterior wall of the L3 in the lateral view (midway between the superior and inferior endplates) and it crossed the midline of the L3 spinous process in the AP view. The stylet was then removed. The bipolar radiofrequency (RF) probe was removed from the previous vertebral body, the tip cleaned and was inserted into the introducer cannula in its ablation position. The spin wheel was rotated clockwise to retract the PEEK sleeve to expose the proximal electrode on the radiofrequency probe. The BVN was then ablated using [employer]?s standard RFG algorithm. Upon completion of the energy application instruments were removed and skin incisions were closed using single suture of the 0 silk at the each incision site. The patient tolerated procedure well she was awaken and taken outside of the operating room to the recovery room. She recovered uneventfully.
[2023-03-31] MEDS: oxyCODONE HCl Immed Release 5 MG TABLET PO (10:05)
[2023-03-31] MEDS: fentaNYL citrate/PF 100 MCG/2 ML VIAL 50 MCG IVPUSH ×2 (10:05→10:15)
== END 2023-03-31 12:05 | disposition home or self-care (01) ==
PROVIDERS: PCP Internal Medicine; Visit Provider Anesthesiology
PROC: (CPT 64628; principal; 2023-03-31 07:30)
DX: M54.51 Vertebrogenic low back pain (principal); M51.36 Other intervertebral disc degeneration, lumbar region; G89.4 Chronic pain syndrome; M47.816 Spondylosis without myelopathy or radiculopathy, lumbar region; I10 Essential (primary) hypertension; E03.8 Other specified hypothyroidism; E78.00 Pure hypercholesterolemia, unspecified; N63.0 Unspecified lump in unspecified breast; Z86.73 Personal history of transient ischemic attack (TIA), and cerebral infarction without residual deficits; Z90.49 Acquired absence of other specified parts of digestive tract; Z79.82 Long term (current) use of aspirin; Z79.899 Other long term (current) drug therapy; Z98.890 Other specified postprocedural states; F17.210 Nicotine dependence, cigarettes, uncomplicated
CPT/HCPCS: 64628; C1889; J0690; J1100; J2250; J2795; J3010; Q9967

== ENCOUNTER → 2023-03-31 05:57 | Outpatient (BNV) | payer OTHER, SELFPAY | PROVIDERS: PCP Internal Medicine; Visit Provider Anesthesiology | DX: M54.51 Vertebrogenic low back pain (principal) | CPT/HCPCS: 64625 ==

== ENCOUNTER 2023-04-10 08:38 | Outpatient (AMB) | payer OTHER, SELFPAY ==
--- NOTE | 2023-04-10 08:53 | A.OFFVIS_ITS ---
Intake Vital Signs 04/10/23 08:59 Height 4 ft 11 in Weight 185 lb BMI 37.4 BP 130/72 Blood Pressure Location Lt radial Position Sitting Respiration 18 Pulse 83 Pulse Source Pulse Oximeter Pulse Oximetry (%) 96 Oxygen Delivery Method Room Air Intake Visit Reasons: S/p Intracept L3-L4 03/31/23/confirmed Intake Note: patient comes i n for s/p Intracept L3 - L4 on 03/31/23. She reports pain level today 01/12. Allergies No Known Allergies [No Known Allergies*] Allergy (Verified 04/10/23 08:59) HPI HPI Comments History of Present Illness Details Katherine is in my office today to discuss results of the intercept procedure on 03/31/2023. She still reports significant pain in the area of the left hip while she reports that axial back pain is much better. She reports that all the torso turning, left-sided twisting stepping out of the bed, stepping out of the car, causing her severe pain in the left side with radiation into the left buttock. I offered her to repeat left sacroiliac joint injection diagnostic to figure out the nature of her pain again. She agreed to go for the procedure and it will be scheduled as soon as possible. The dressing was removed today sutures are competent. No pathological discharge, minimal redness, no swelling, no local temperature. The dry dressing with Tegaderm was applied. Patient recommended to have shower in couple of days. Do not remove the dressing until it falls off on itself. Prior: She reported no pain relief whatsoever after sacroiliac joint injection. She will after that had diagnostic medial branch block L2-L3 L4 does ramus L5 on the left on 02/03/2023. She reported no pain relief from this injection whatsoever. She states now that the pain affects not only the right side but also the left side. Attention was attracted that the patient has Modic type 2 changes on the MRI at L3 and L4 vertebra. She reports pain aggravation when seen tries to flex her spine forward, she reports pain aggravation with prolonged standing and walking. She reports some pain aggravation with sitting. Today we discussed possibility to treat her condition with intracept procedure. Risks benefits and alternatives were explained to the patient. She agreed to go for the procedure. Prior: very pleasant 52 years old female who is working for [employer].? She is presenting today in my office with complains on pain on the left side of the lower back without radiation.? She reports that she is suffering from this pain to for 2 years. She was a subject of physical therapy with no help improvement she had chiropractic manipulation with [facility] without improvement she had massage therapy and occupational therapy without improvement.? She tries NSAIDs without much of the success. X-rays of lumbar spine and MRI of the lumbar spine the results of the MRI dictated as below.? She never received injections in her sacroiliac joint.? Her past medical history significant for headaches history of stroke and history of gallstones and gallbladder removal in 2016, she smokes cigarettes 1 pack per day she drinks alcohol 1 drink a week she denies using recreational drugs she admits drinking caffeinated beverages [facility] Medical History (Updated 03/28/23 @ 14:19 by Katherine Alonso RN) Subclinical hypothyroidism TIA (transient ischemic attack) Elevated cholesterol HTN (hypertension) Low back pain Breast lump Surgical History (Updated 03/28/23 @ 14:14 by Katherine Alonso RN) History of surgery History of cholecystectomy Social History Alcohol intake: never Patient Tobacco Use Status: Current everyday Tobacco user Tobacco use type: Cigarette Cigarette Packs Per Day: 0.5 Cigarettes Per Day: 10.0 Second Hand Smoke Exposure: No Current occupational status: employed Current occupation: [employer] Review of Systems Const All systems reviewed & are unremarkable except as noted in HPI and below ENT Reports Normal hearing present Neuro Reports Normal hearing present, Denies Abnormal speech present and Denies Sensory deficit (Neuro) Physical Exam Vital Signs: Last Vital Signs Pulse 83 04/10/23 08:59 Resp 18 04/10/23 08:59 BP 130/72 04/10/23 08:59 Pulse Ox 96 04/10/23 08:59 Oxygen Delivery Method Room Air 04/10/23 08:59 BMI result Body Mass Index 37.4 Const General: no acute distress Nutritional Appearance: obese morbidly obese Orientation/consciousness: patient oriented x3 Eyes General: appearance normal, both eyes and all related structures Pupils: Equal, round and reactive pupils present EOM: EOMs intact bilaterally Neck Neck: Yes full ROM Chest Chest palpation & inspection: normal inspection of the chest Resp Effort & Inspection: normal respiratory effort, able to speak in complete sentences, normal respiratory pattern, no audible wheezes and no cough Cardio Jugular venous distension: no JVD GI Inspection: Yes normal to inspection Back/Spine/Pelvis Other: Positive Harry test, positive Gaenslen test, positive pelvic destruction test on the left make me think about sacroiliitis and sacroiliac joint dysfunction on the left. Neuro General: patient oriented x3 and gait normal Cranial nerves: Yes CN's II-XII intact bilaterally, Yes Equal, round and reactive pupils present, Yes Normal hearing present and Yes Ability to bilaterally elevate shoulders present Speech: No Abnormal speech present Gait exam (Neuro): Normal gait present Motor exam (neuro): 5/5 motor strength present throughout Sensory Exam: No Sensory deficit (Neuro) Extrem General: No pedal edema Psych Speech and movement: Normal speech and movement present Affect: normal affect Attitude: cooperative Thought process: Normal thought process present Thought content: Normal thought content present Insight: Good insight present (Psych) Judgement: Good judgement present (Psych) Assessment & Plan Assessment & Plan (1) Chronic pain syndrome: Code(s): G89.4 - Chronic pain syndrome (2) Spondylosis, lumbar, with myelopathy: Code(s): M47.16 - Other spondylosis with myelopathy, lumbar region (3) Facet arthropathy, lumbar: Code(s): M47.816 - Spondylosis without myelopathy or radiculopathy, lumbar region (4) Degeneration of lumbar intervertebral disc: Code(s): M51.36 - Other intervertebral disc degeneration, lumbar region (5) Vertebrogenic low back pain: Code(s): M54.51 - Vertebrogenic low back pain Plan MRI of this patient is significant for Modic type 2 changes L3-L4 it might be innocent bystander findings not actually related to the clinical situation. left SI joint resulted in no good pain improvement. L2,L3, L4 L5 medial branch block on the left resulted in no pain improvement. We performed intercept procedure and patient reported that axial back pain is significantly improved. However she points out that the pain in the projection of the sacroiliac joint with radiation to the left buttock starts to bother her the most. She wants me to repeat left sacroiliac joint injection she just recently completed oral steroids related to intercept procedure. I would like to perform SI joint steroid injections for her but for now I would like to repeat left sacroiliac joint diagnostic injection. Dressing changed today is above sutures removed sterile Band-Aid was applied. Coding Level of Care Code Est Pt Level 3 (93373) Diagnoses Chronic pain syndrome G89.4 Spondylosis, lumbar, with myelopathy M47.16 Facet arthropathy, lumbar M47.816 Degeneration of lumbar intervertebral disc M51.36 Vertebrogenic low back pain M54.51
[2023-04-10 08:59] VITALS: BP 130/72; PULSE 83; RESP 18; O2SAT 96; BMI 37.4
== END 2023-04-10 09:16 | disposition home or self-care (01) ==
PROVIDERS: PCP Internal Medicine; Visit Provider Anesthesiology
DX: G89.4 Chronic pain syndrome (principal); M47.16 Other spondylosis with myelopathy, lumbar region; M47.816 Spondylosis without myelopathy or radiculopathy, lumbar region; M51.36 Other intervertebral disc degeneration, lumbar region; M54.51 Vertebrogenic low back pain
CPT/HCPCS: 99024

== ENCOUNTER → 2023-04-10 08:38 | Outpatient (BNVA) | payer OTHER, SELFPAY | PROVIDERS: PCP Internal Medicine; Visit Provider Anesthesiology ==

== ENCOUNTER 2023-10-03 07:52 | Outpatient (REF) | payer OTHER, SELFPAY ==
[2023-10-03 09:29] LABS: Alanine Aminotransferase 10 U/L (0-31); Alkaline Phosphatase 84 U/L (39-117); Anion Gap 12 (12-20); Aspartate Amino Transferase 17 U/L (5-31); Bilirubin Total 0.7 mg/dL (0.0-1.0); Blood Urea Nitrogen 18 mg/dL (9-16); Calcium 9.5 mg/dL (8.4-10.2); Carbon Dioxide 25 mmol/L (22-29); Chloride 107 mmol/L (96-108); Cholesterol 214 mg/dL (<200); Estimated Glomerular Filt Rate > 60; Glucose Random 88 mg/dL (60-115); HDL Cholesterol 43 mg/dL (>40); LDL Cholesterol Calculated 146 mg/dL (<100); Potassium 3.9 mmol/L (3.3-5.1); Sodium 140 mmol/L (135-145); Total Protein 7.5 g/dL (6.5-8.0); Triglycerides 128 mg/dL (<150)
== END 2023-10-03 07:53 | disposition home or self-care (01) ==
LOC: HO.LAB 07:52
PROVIDERS: PCP Internal Medicine; Visit Provider Internal Medicine
DX: E78.2 Mixed hyperlipidemia (principal); Z86.73 Personal history of transient ischemic attack (TIA), and cerebral infarction without residual deficits
CPT/HCPCS: 36415; 80053; 80061

== ENCOUNTER 2024-02-19 12:21 | Outpatient (REF) | payer OTHER, SELFPAY ==
--- NOTE | ~2024-02-19 | MM_ITS ---
EXAMINATION: MM SCREENING DIGITAL BREAST TOMOSYNTHESIS, BILATERAL CLINICAL INFORMATION: Screening. Asymptomatic. COMPARISON: Mammography: Comparison is made with available prior examinations. TECHNIQUE: Digital breast tomosynthesis is performed in both the craniocaudal and mediolateral oblique views along with computer-aided detection (CAD). Synthesized 2D images are generated from the tomosynthesis. FINDINGS: There are scattered areas of fibroglandular density (ACR BI-RADS breast composition Category b). There are no significant masses, abnormal calcifications, or other abnormalities. MM/MM tomosynthesis screening BI IMPRESSION: No mammographic evidence of malignancy. ASSESSMENT: BI-RADS BI-RADS 1 - Negative RECOMMENDATION: Routine annual mammography screening. 1 year F/U This examination should not preclude the clinical evaluation of a suspicious palpable abnormality. This patient's information was entered into a reminder system with a target due date for their next mammogram. Electronically signed by: Deanna Gibson DO 02/22/2024 06:48 PM EDT
== END 2024-02-19 12:22 | disposition home or self-care (01) ==
LOC: HO.MAMMO 12:21
PROVIDERS: PCP Internal Medicine; Visit Provider Internal Medicine
DX: Z12.31 Encounter for screening mammogram for malignant neoplasm of breast (principal)
CPT/HCPCS: 77063; 77067

== ENCOUNTER → 2024-02-19 12:45 | Outpatient (BNV) | payer OTHER, SELFPAY | PROVIDERS: PCP Internal Medicine; Visit Provider Internal Medicine | DX: Z12.31 Encounter for screening mammogram for malignant neoplasm of breast (principal) | CPT/HCPCS: 77063; 77067 ==

== ENCOUNTER 2024-11-12 15:48 | Outpatient (REF) | payer OTHER, SELFPAY ==
--- NOTE | ~2024-11-12 | XR_ITS ---
EXAMINATION: XR KNEE 4 OR MORE VIEWS RIGHT HISTORY: OA COMPARISON: There are no prior studies available for comparison. FINDINGS: Four views of the right knee are submitted. Osseous mineralization is normal. There is no fracture or dislocation. The joint spaces are preserved. The soft tissues are unremarkable. There is no joint effusion. XR/XR knee RT 4V IMPRESSION: Unremarkable examination of the right knee. Electronically signed by: Indra Ramirez MD 11/13/2024 08:29 AM EDT
== END 2024-11-12 15:49 | disposition home or self-care (01) ==
LOC: HO.XRAY 15:48
PROVIDERS: PCP Internal Medicine; Visit Provider Internal Medicine
DX: M25.561 Pain in right knee (principal)
CPT/HCPCS: 73564

== ENCOUNTER → 2024-11-12 16:25 | Outpatient (BNV) | payer OTHER, SELFPAY | PROVIDERS: PCP Internal Medicine; Visit Provider Radiology Diagnostic Radiology | DX: M17.11 Unilateral primary osteoarthritis, right knee (principal) | CPT/HCPCS: 73564 ==

== ENCOUNTER 2024-12-25 10:50 | Outpatient (RCR) | payer OTHER, SELFPAY | END 2025-01-08 14:25 | disposition home or self-care (01) | LOC: HO.PT 10:50 | PROVIDERS: PCP Internal Medicine; Visit Provider Internal Medicine | DX: M25.561 Pain in right knee (principal) | CPT/HCPCS: 97033; 97110; 97140; 97161; 97530 ==

== ENCOUNTER 2025-01-20 08:12 | Outpatient (REF) | payer OTHER, SELFPAY ==
--- NOTE | ~2025-01-20 | XR_ITS ---
EXAMINATION: XR KNEES ANTEROPOSTERIOR STANDING BILATERAL HISTORY: M25.561 - Pain in right knee COMPARISON: Comparison is made with the prior examination of the right knee dated 11/12/2024. FINDINGS: Standing AP views of both knees are submitted. Osseous mineralization is normal. No fracture is seen on this single AP view. There is mild narrowing of the medial compartment of the right knee. The lateral compartment of the right knee and the medial and lateral compartments of the left knee are preserved. XR/XR knee standing BI IMPRESSION: Mild narrowing of the medial compartment of the right knee. Electronically signed by: Indra Ramirez MD 01/20/2025 09:31 AM EDT
== END 2025-01-20 08:13 | disposition home or self-care (01) ==
LOC: HO.HOSX 08:12
PROVIDERS: Visit Provider Physician Assistant
DX: M22.2X1 Patellofemoral disorders, right knee (principal); M17.0 Bilateral primary osteoarthritis of knee; M25.561 Pain in right knee; M25.562 Pain in left knee
CPT/HCPCS: 73565

== ENCOUNTER 2025-01-20 08:19 | Outpatient (AMB) | payer OTHER, SELFPAY ==
--- NOTE | 2025-01-20 08:26 | MHC.OFFVIS ---
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 Patient was referred by PCP for ongoing knee pain, reports of tried and failed PT, MRI was ordered. At today's visit she states that the knee pain has been going on for about four months. She states that physical therapy helped with walking but that's it, she no longer needs to use her cane. She reports that she has a pulling feeling as she walks. Allergies No Known Allergies (No Known Allergies*) Allergy (Verified 01/20/25 08:29) HPI HPI PROCESS CHEMIST- RT knee pain: Details: 54 yo female presents to the office today for right knee pain x3-4 months. She states she drove down to [facility] at the end of october and feels having her leg in one position irritated the knee. She states the knee has pain along the back of the knee and when she is walking she feels it will give out. Prior to this trip she had no pain in the knee. She states she has tried physical therapy with no significant relief. [facility] Medical History (Updated 01/20/25 @ 08:50 by Meseret Martinez PA-C) Nicotine dependence, cigarettes, uncomplicated Subclinical hypothyroidism TIA (transient ischemic attack) Elevated cholesterol HTN (hypertension) Low back pain Breast lump Surgical History (Updated 03/28/23 @ 14:14 by Katherine Alonso RN) History of surgery History of cholecystectomy Social History Alcohol intake: never Patient Tobacco Use Status: Current everyday Tobacco user Tobacco use type: Cigarette Cigarette Packs Per Day: 0.5 Cigarettes Per Day: 10.0 Second Hand Smoke Exposure: No Current occupational status: employed Current occupation: [employer] Review of Systems Const All systems reviewed & are unremarkable except as noted in HPI and below Physical Exam Vital Signs: BMI result Body Mass Index 42.4 Const General: cooperative and no acute distress Orientation/consciousness: patient oriented x3 Resp Effort & Inspection: normal respiratory effort and able to speak in complete sentences Cardio Peripheral pulses: Peripheral pulses 2+ throughout Neuro General: patient oriented x3 Extrem Other: Right knee normal to inspection no erythema or joint effusion present. No significant tenderness to palpation over the anterior medial lateral joint line. She has some tenderness posteriorly along the hamstring tendon insertion. Full range of motion no ligamentous laxity. Calf is supple and nontender neurovascularly intact. Results Reviewed Results Reviewed: X-rays of both knees obtained in the office today and reviewed by me show mild medial compartment arthritis with PF O a MR KNEE WITHOUT CONTRAST RIGHT INDICATION: Right knee pain. Question tear. TECHNIQUE: MRI of the right knee was performed according to routine protocol with multiplanar fast spin echo imaging. COMPARISON: None. FINDINGS: There is a small knee joint effusion. No popliteal cyst. There is mild surface cartilage thinning/chondromalacia at the central patella. Intact femoral trochlea. The extensor mechanism is intact. Anterior and posterior cruciate ligaments, and medial and lateral collateral complexes are intact. The medial meniscus is intact. Intact medial femorotibial cartilage. The lateral meniscus is intact. Intact lateral femorotibial cartilage. Normal muscle signal. Normal proximal tibiofibular articulation. No soft tissue mass. No loose bodies are detected. IMPRESSION: Mild chondromalacia patella. Small knee joint effusion. No evidence of ligament or meniscus tear. Assessment & Plan Assessment & Plan (1) Patellofemoral disorders, right knee: Code(s): M22.2X1 - Patellofemoral disorders, right knee Category: Medical Plan: We discussed options which includes physical therapy. A new order has been placed and she will contact them to make a new appointment. I explained she needs to get the inflammation down before she can feel some benefits with physical therapy, therefore a Celebrex prescription was sent to the pharmacy which she will take for 2 weeks. She was also fit for a knee brace in the office today which she will wear with activity. If symptoms persist or worsen over the next 6-8 weeks she will contact our office for a cortisone injection otherwise follow up as needed. Orders: Orders XR knee standing BI Today M25.561 - Pain in right knee, M25.562 - Pain in left knee PT Evaluation and Treatment Today M22.2X1 - Patellofemoral disorders, right knee Medications: New celecoxib (Celebrex) 200 mg PO BID 60 caps 3RF 30 days Coding Level of Care Code Est Pt Level 3 (55165) Complex EM visit Add On G2211 Diagnoses Patellofemoral disorders, right knee M22.2X1
[2025-01-20 08:28] VITALS: BMI 42.4
== END 2025-01-20 09:42 | disposition home or self-care (01) ==
PROVIDERS: PCP Internal Medicine; Visit Provider Physician Assistant
DX: M22.2X1 Patellofemoral disorders, right knee (principal)
CPT/HCPCS: 99213

== ENCOUNTER → 2025-01-20 08:22 | Outpatient (BNV) | payer OTHER, SELFPAY | PROVIDERS: Visit Provider Radiology Diagnostic Radiology | DX: M17.11 Unilateral primary osteoarthritis, right knee (principal) | CPT/HCPCS: 73565 ==

== ENCOUNTER 2025-02-20 15:49 | Outpatient (REF) | payer OTHER, SELFPAY | END 2025-02-20 15:50 | disposition home or self-care (01) | LOC: HO.MAMMO 15:49 | PROVIDERS: PCP Internal Medicine; Visit Provider Internal Medicine | DX: Z12.31 Encounter for screening mammogram for malignant neoplasm of breast (principal) | CPT/HCPCS: 77063; 77067 ==

== ENCOUNTER → 2025-02-20 16:00 | Outpatient (BNV) | payer OTHER, SELFPAY | PROVIDERS: PCP Internal Medicine; Visit Provider Internal Medicine | DX: Z12.31 Encounter for screening mammogram for malignant neoplasm of breast (principal) | CPT/HCPCS: 77063; 77067 ==

== ENCOUNTER 2025-02-28 07:15 | Outpatient (REF) | payer OTHER, SELFPAY ==
[2025-02-28 07:43] LABS: MANUAL DIFF FLAG NO
[2025-02-28 08:27] LABS: Hematocrit 41.2 % (37.0-47.0); Hemoglobin 13.5 g/dl (12.0-16.0); Imm Gran Abs Auto 0.02 X10*3/uL (0.00-0.03); Imm Gran Pct Auto 0.2 % (0.0-0.4); Lymphocytes Absolute Auto 2.5 X10*3/uL (1.2-4.9); Mean Corpuscular HGB Conc 32.8 g/dl (31.0-35.0); Mean Corpuscular Hemoglobin 27.3 pg (27.0-33.0); Mean Corpuscular Volume 83.2 fL (80.0-98.0); NRBC Abs Auto 0.000 X10*3/uL (0.0-0.012); NRBC Pct Auto 0.0 /100WBC (0.0-0.2); Platelet Count 386 X10*3/uL (160-400); Red Blood Count 4.95 X10*6/uL (4.20-5.50); White Blood Count 8.3 X10*3/uL (4.8-10.8)
[2025-02-28 09:16] LABS: Alanine Aminotransferase 13 U/L (0-31); Albumin Level 4.3 g/dL (3.5-5.0); Alkaline Phosphatase 98 U/L (39-117); Anion Gap 12 (12-20); Aspartate Amino Transferase 22 U/L (5-31); Blood Urea Nitrogen 18 mg/dL (9-16); Calcium 9.6 mg/dL (8.4-10.2); Carbon Dioxide 25 mmol/L (22-29); Chloride 109 mmol/L (96-108); Cholesterol 173 mg/dL (<200); Estimated Glomerular Filt Rate > 60; HDL Cholesterol 33 mg/dL (>40); Potassium 4.0 mmol/L (3.3-5.1); Sodium 142 mmol/L (135-145); Total Protein 7.4 g/dL (6.5-8.0); Triglycerides 191 mg/dL (<150)
== END 2025-02-28 07:16 | disposition home or self-care (01) ==
LOC: HO.LAB 07:15
PROVIDERS: PCP Internal Medicine; Visit Provider Internal Medicine
DX: Z00.00 Encounter for general adult medical examination without abnormal findings (principal); M23.91 Unspecified internal derangement of right knee; E78.00 Pure hypercholesterolemia, unspecified; Z72.0 Tobacco use; Z86.73 Personal history of transient ischemic attack (TIA), and cerebral infarction without residual deficits
CPT/HCPCS: 36415; 80053; 80061; 85025